=== PATIENT | female | born 2000 | race Caucasian/White ===

== ENCOUNTER 2024-09-22 09:38 | Outpatient (AMB) | payer MEDICAID, SELFPAY ==
[2024-09-22 09:53] VITALS: BP 110/71; PULSE 77; RESP 16; TEMP 35.7; O2SAT 99; BMI 25.7
--- NOTE | 2024-09-22 09:53 | OBCLNT_ITS ---
Vital Signs 09/22/24 09:53 Height 1.75 m Height Method Stated Weight 78.982 kg Weight Measurement Method Standing Scale BMI 25.7 BP 110/71 Blood Pressure Source Automatic Cuff Blood Pressure Location Left Upper Arm Position Sitting Respiration 16 Pulse 77 Pulse Source Monitor Temp 96.3 F L Temp Source Oral Pulse Oximetry (%) 99 Oxygen Delivery Method Room Air Allergies/Home Meds Allergies & Medications Allergies No Known Allergies Allergy (Verified 09/22/24 09:54) Medication Reconciliation vitamins with calcium no.72-iron 29 mg-folic acid 1 mg tablet ( Plus) 1 tab PO QDAY 90 days #90 tabs 09/22/24 [Rx] Intake Visit Data Collection New Patient or Established: New Patient (never been to [facility]) Reason for Visit:: New OB intake Seen by Clinical Staff ONLY (RN/MA): No Flooring Professional Required: No Do You Feel Safe at Home: Yes Authorities Contacted: N/A PCP or OBGYN visit in last 3 months: No Hx Now: Yes Are you currently on any form of Control: No Last menstrual period: 07/18/24 Pain Present Currently: No Pain Scale Used: Mcneal-Zeng/Numerical Pain scale:: 0 Smoking Status Smoking Status: Never smoker Questionnaires Covid-19 Vaccine Questionnaire Has patient been vacinated for Covid-19 Have you been vacinated for Covid-19: Yes PHQ-9 PHQ-2 Over the last 2 weeks, how often have you been bothered by any of the following problems? 1. Little interest or pleasure in doing things: not at all 2. Feeling down, depressed, or hopeless: not at all Total score: 0 PHQ-9 3. Trouble falling or staying asleep, or sleeping too much: Not at all 4. Feeling tired or having little energy: Not at all 5. Poor appetite or overeating: Not at all 6. Feeling bad about yourself - or that you are a failure or have let yourself or your family down: Not at all 7. Trouble concentrating on things, such as reading the newspaper or watching television: Not at all 8. Moving or speaking so slowly that other people could have noticed? - Or the opposite - being so fidgety or restless that you have been moving around a lot more than usual: not at all 9. Thoughts that you would be better off or of hurting yourself in some way: Not at all Total score: 0 If you checked off any problems, how difficult have these problems made it for you to do your work, take care of things at home, or get along with other people?: not difficult at all Source: Developed by Drs. Aydin Kat, Shadia Navraez, Surendra Acosta and colleagues, with an educational brandee from [employer]. Depression screen completed yes Social History Living Situation History Marital Status: Single Lives With: Family Housing: House Tobacco History Smoking Status: Never smoker Domestic Abuse History Do You Feel Safe at Home: Yes Past Medical History Past Medical History Have you ever been diagnosed with any of the following: History of Present Illness HPI Narrative Chief Complaint First visit for History of Present Illness Geraldine Alarcon presents for her first visit. She reports her last menstrual period was on July 18, which puts her at 9 weeks and 3 days gestation with an estimated due date of April 24. The patient states that overall, her is going good. She reports experiencing a little bit of nausea and vomiting, but notes it occurs only once in a while and not daily or multiple times per day. She denies any cramping, spotting, or bleeding. Geraldine has one previous child, a 7-year-old daughter, born via vaginal delivery without complications. She denies any history of gestational diabetes or high blood pressure in her previous . The patient is currently taking vitamins as recommended. Surgical History - Vaginal (1 child) Medications and Supplements - vitamins Social History - Children: Has a 7-year-old daughter Review of Systems General: Negative for fever, chills, fatigue, muscle aches, appetite or weight change. Gastrointestinal: Positive for mild nausea, negative for vomiting. Genitourinary: Negative for vaginal bleeding. OB Initial Visit Menstrual History Menstrual reliability: definite Flow: normal Menstrual regularity: regular Monthly: Yes Age at menarche: 10 On control pills at conception: No Date of positive home test: 08/26/24 OB History : 2 Para: 1 Hx # Pregnancies: 0 Hx Total # of Abortions (Spontaneous & Elective): 0 # of Living Children: 1 Delivery History 1st : Child's name: LOREN date: 06/18/17 sex: female Delivery type: vaginal History of depression before or after : No Infection History & Risk Evaluation History of STDs: none HIV risk evaluation: low risk Hepatitis B risk evaluation: low risk Patient or partner has history of Genital Herpes: No Varicella/chicken pox status: immunized Genetic Screening & History Genetic Screening/Teratology Counseling - Includes patient, baby's father, or anyone in either family with: 1. Patient's age 35 years or older as of estimated date of delivery: No 2. Thalassemia (Chilean, Hungarian, Mediterranean, or Background); MCV less than 80: No 3. Neural Tube Defect (Meningomyelocele, Spina Bifida, or Anencephaly): No 4. Congenital Heart Defect: No 5. Down Syndrome: No 6. Maximilian-Sachs (Ashkenazi Sikhism, Cajun, Faroese Burundian): No 7. Van Disease (Ashkenazi Sikhism): No 8. Familial Dysautonomia (Ashkenazi Sikhism): No 9. Sickle Cell Disease or Trait (): No 10. Hemophilia or other blood disorders: No 11. Muscular Dystrophy: No 12. Cystic Fibrosis: No 13. Julio C's Chorea: No 14. Mental Retardation/Autism: No 15. Other inherited genetic or chromosomal disorder: No 16. Maternal Metabolic Disorder (EG,TYPE 1 Diabetes, PKU): No 17. Patient or baby's father had a child with defects not listed above: No 18. Recurrent loss or a stillbirth: No 19. Medications (including supplements, vitamins, herbs or otc drugs)/illicit/recreational drugs/alcohol since last menstrual period: No 20. Any other: No Infection History 1. Live with someone with TB or exposed to TB: No 2. Rash or viral illness since last menstrual period: No 3. Hepatitis B,C: No Other (see comments) Source: [employer] OB Flowsheet OB Flowsheet Initial Weight: Not Recorded Date -?-?-?-?-?-?-?-?-?-?-?--?- EGA Weight Edema CTX Effacement BP Fundal ht Pres Dilation Effacement Station Visit Note Alb Glu FHR Mov 09/22/24 -?-?-?-?-?-?-?-?-?-?-?-?- 9w 3d 78.982 kg 110/71 Bedsi de sono CRL 9w3d FHR 167 Review of Systems Review of Systems Systems Reviewed: All systems reviewed, normal except as documented Exam General Limitations: no limitations General Appearance: alert, in no apparent distress, comfortable, cooperative, healthy appearing, well developed and well groomed Head Head exam: atraumatic, normocephalic and normal inspection Chest Chest inspection: Present normal inspection and symmetric chest wall rise Abdominal Abdominal exam: Present soft and normal bowel sounds Psych Psychiatric exam: Present normal affect and normal mood Assessment & Plan Diagnosis / Problem List (1) : Status: Acute (2) Supervision of high risk , unspecified, first trimester: Status: Acute Plan Patient here to establish initial care Bedside ultrasound is consistent with LMP dates Sent prescription for vitamins Given lab order for initial labs as well as NIPT Return in 4 weeks Additional Plan Follow Up: 2 Weeks Office Procedures OB Clinic LOC & Office Proc's Nursing/Assessment Patient Status: Initial/New Patient OB Clinic Nursing Assessment: BP Monitoring, Medication Reconciliation, Update PMH in EMR and Vital Signs OB Clinic Coordination of Care: Consent,records obtained, informed consent, Education Simp Pt/Fam, Lab and Imaging orders and Staff clarify orders New Patient Charge New Patient Point Assignment: [id number] New Patient 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
== END 2024-09-22 09:59 | disposition home or self-care (01) ==
LOC: HODSOBC 09:38
PROVIDERS: PCP Family Medicine; Referring Provider Family Medicine; Supervising Provider Obstetrics & Gynecology; Visit Provider Obstetrics & Gynecology
DX: O09.91 Supervision of high risk pregnancy, unspecified, first trimester (principal); Z3A.09 9 weeks gestation of pregnancy
CPT/HCPCS: 76801; 99203; G0463

== ENCOUNTER 2024-10-13 10:12 | Outpatient (AMB) | payer MEDICAID, SELFPAY ==
[2024-10-13 10:34] VITALS: BP 121/76; PULSE 88; RESP 18; TEMP 36.2; O2SAT 98; BMI 25.8
--- NOTE | 2024-10-13 10:34 | OBCLNT_ITS ---
Vital Signs 10/13/24 10:34 Height 1.75 m Height Method Stated Weight 79.095 kg Weight Measurement Method Standing Scale BMI 25.8 BP 121/76 Blood Pressure Source Automatic Cuff Blood Pressure Location Right Upper Arm Position Sitting Respiration 18 Pulse 88 Pulse Source Monitor Temp 97.1 F Temp Source Temporal Artery Scan Pulse Oximetry (%) 98 Oxygen Delivery Method Room Air Allergies/Home Meds Allergies & Medications Allergies No Known Allergies Allergy (Verified 10/13/24 10:36) Medication Reconciliation vitamins with calcium no.72-iron 29 mg-folic acid 1 mg tablet ( Plus) 1 tab PO QDAY 90 days #90 tabs 09/22/24 [Rx Confirmed 10/13/24] Intake Visit Data Collection New Patient or Established: Established Patient (seen at [facility] within 3 years) Reason for Visit:: - 2nd visit at 12 weeks and 3 days - Review of lab results Do You Feel Safe at Home: Yes Authorities Contacted: N/A PCP or OBGYN visit in last 3 months: Yes Pain Present Currently: No Smoking Status Smoking Status: Never smoker Questionnaires Covid-19 Vaccine Questionnaire Has patient been vacinated for Covid-19 Have you been vacinated for Covid-19: Yes PHQ-9 PHQ-2 Over the last 2 weeks, how often have you been bothered by any of the following problems? 1. Little interest or pleasure in doing things: not at all 2. Feeling down, depressed, or hopeless: not at all Total score: 0 PHQ-9 8. Moving or speaking so slowly that other people could have noticed? - Or the opposite - being so fidgety or restless that you have been moving around a lot more than usual: not at all Source: Developed by Drs. Aydin Kat, Shadia Narvaez, Surendra Acosta and colleagues, with an educational brandee from [employer]. Depression screen completed yes Social History Living Situation History Marital Status: Life Partner Lives With: Family Housing: House Tobacco History Smoking Status: Never smoker Domestic Abuse History Do You Feel Safe at Home: Yes Past Medical History Past Medical History Have you ever been diagnosed with any of the following: History of Present Illness HPI Narrative - Geraldine presents for her 2nd visit at 12 weeks and 3 days gestation for review of lab results. 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 Ultrasound performed, visualizing placenta and fetus. head, body, and legs identified on ultrasound. Review of Systems Review of Systems Systems Reviewed: All systems reviewed, normal except as documented Visit OB Visit Log OB Flowsheet Initial Weight: Not Recorded Date -?-?-?-?-?-?-?-?-?-?-?-?- EGA Weight Edema CTX Effacement BP Fundal ht Pres Dilation Effacement Station Visit Note Alb Glu FHR Mov 09/22/24 -?-?-?-?-?-?-?-?-?-?-?-?- 9w 3d 78.982 kg 110/71 Bedsi de sono CRL 9w3d FHR 167 10/13/24 -?-?-?-?-?-?--?-?-?-?-?-?- 12w 3d 79.095 kg 121/76 No C TX/LOF/VB. Reports good FM. No PICHARDO/VS, Epig/RUQ pain. Reports resolved nausea, mild persistent cough, no urinary symptoms. 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 Ultrasound: FHR 161 bpm. Placenta and fe lesa anatomy (head, body, legs) visualized. Labs: Asymptomatic bacteriuria (E. coli) . Genetic screen negative for aneuploidies. Female fetus. Assessment & Plan: 12w3d IUP with normal ultrasound and lab s. Mild cough, asymptomatic UTI. Treat UTI: prescribe 5-day antibiotic co urse Retest urine at next visit Provide genetic results in sealed envelo pe Advise wearing mask while working with n ail products Recommend light/moderate exercise; avoid high-intensity activity No targeted weight gain needed at this s tage Follow up in 4 weeks Reviewed labor signs and health guidance TATYANA Calculator Estimated Delivery Date Method Current WG Current Estimate 04/24/25 Ultrasound #1 12w 6d Other Estimates 04/24/25 LMP (Certain) 12w 6d Exam General General Appearance: alert, in no apparent distress and healthy appearing Head Head exam: atraumatic Neck Neck exam: Present normal inspection and trachea midline Chest Chest inspection: Present normal inspection and symmetric chest wall rise External exam: Present normal external exam; Absent tenderness Neuro Neurological exam: Present oriented X3 Psych Psychiatric exam: Present normal affect and normal mood Assessment & Plan Diagnosis / Problem List (1) Supervision of high risk , unspecified, first trimester: Status: Acute (2) : Status: Acute Plan Problem List - Urinary tract infection - Cough Assessment - Intrauterine at 12 weeks and 3 days gestation - Asymptomatic bacteriuria with E. coli - Mild persistent cough - Normal genetic screening results (negative for aneuploidies) - Female fetus Plan - Prescribe 5-day course of antibiotics for E. 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 Advised avoiding heavy lifting and getting adequate rest. Instructed to contact the office immediately if any signs occur. Discussed the importance of a balanced diet rich in folic acid, iron, and calcium, and provided a list of recommended and to-avoid foods. Emphasized avoiding high-sugar foods to reduce gestational diabetes risk. Encouraged hydration and frequent, small meals for energy..
== END 2024-10-13 11:05 | disposition home or self-care (01) ==
LOC: HODSOBC 10:12
PROVIDERS: PCP Obstetrics & Gynecology; Referring Provider Obstetrics & Gynecology; Supervising Provider Obstetrics & Gynecology; Visit Provider Obstetrics & Gynecology
DX: O09.891 Supervision of other high risk pregnancies, first trimester (principal); Z3A.12 12 weeks gestation of pregnancy; O23.41 Unspecified infection of urinary tract in pregnancy, first trimester; N39.0 Urinary tract infection, site not specified; B96.20 Unspecified Escherichia coli [E. coli] as the cause of diseases classified elsewhere; O99.891 Other specified diseases and conditions complicating pregnancy; R05.3 Chronic cough
CPT/HCPCS: 99214; G0463

== ENCOUNTER 2024-11-17 10:31 | Outpatient (AMB) | payer MEDICAID, SELFPAY ==
--- NOTE | 2024-11-17 10:35 | OBCLNT_ITS ---
Vital Signs 11/17/24 10:42 Height 1.75 m Height Method Stated Weight 84.822 kg Weight Measurement Method Standing Scale BMI 27.6 BP 106/68 Blood Pressure Source Automatic Cuff Blood Pressure Location Right Upper Arm Position Sitting Respiration 16 Pulse 81 Pulse Source Monitor Temp 98.2 F Temp Source Oral Pulse Oximetry (%) 98 Oxygen Delivery Method Room Air Allergies/Home Meds Allergies & Medications Allergies No Known Allergies Allergy (Verified 11/17/24 10:43) Medication Reconciliation vitamins with calcium no.72-iron 29 mg-folic acid 1 mg tablet ( Plus) 1 tab PO QDAY 90 days #90 tabs 09/22/24 [Rx Confirmed 11/17/24] Intake Visit Data Collection New Patient or Established: Established Patient (seen at [facility] within 3 years) Reason for Visit:: CARE Seen by Clinical Staff ONLY (RN/MA): No Chef Broiler Or 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 1. Little interest or pleasure in doing things: not at all 2. Feeling down, depressed, or hopeless: not at all Total score: 0 PHQ-9 3. Trouble falling or staying asleep, or sleeping too much: Not at all 4. Feeling tired or having little energy: Not at all 5. Poor appetite or overeating: Not at all 6. Feeling bad about yourself - or that you are a failure or have let yourself or your family down: Not at all 7. Trouble concentrating on things, such as reading the newspaper or watching television: Not at all 8. Moving or speaking so slowly that other people could have noticed? - Or the opposite - being so fidgety or restless that you have been moving around a lot more than usual: not at all 9. Thoughts that you would be better off or of hurting yourself in some way: Not at all Total score: 0 Source: Developed by Drs. Aydin Kat, Shadia Narvaez, Surendra Acosta and colleagues, with an educational brandee from [employer]. Depression screen completed yes Social History Living Situation History Lives With: Family Housing: House Tobacco History Smoking Status: Never smoker Domestic Abuse History Do You Feel Safe at Home: Yes Care OB Visit Log OB Flowsheet Initial Weight: Not Recorded Date -?-?-?-?-?-?-?-?-?-?-?-?- EGA Weight BP Alb Glu CTX Pres Fundal ht FHR Mov Dilation Station Effacement Hx Notes Visit Note 09/22/24 -?-?-?-?-?-?-?-?-?-?-?-?- 9w 3d 78.982 kg 110/71 Bedside sono CRL 9w3d FHR 167 10/13/24 -?-?-?-?-?-?-?-?-?-?-?-?- 12w 3d 79.095 kg 121/76 No CTX/LOF/VB. Reports good FM. No PICHARDO/VS, Epig/RUQ pain. Reports resolved nausea, mild persistent cough, no urinary symptoms. 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 Ultrasound: FHR 161 bpm. Placenta and fe lesa anatomy (head, body, legs) visualized. Labs: Asymptomatic bacteriuria (E. coli) . Genetic screen negative for aneuploidies. Female fetus. Assessment & Plan: 12w3d IUP with normal ultrasound and lab s. Mild cough, asymptomatic UTI. 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 low pressure at time. no early preg complaints today AFP today, sched MFM for anatomy scan, sab precaution, increase fluid, review ER precaution, RTC 4 week TATYANA Calculator Estimated Delivery Date Method Current WG Current Estimate 04/24/25 Ultrasound #1 17w 3d Other Estimates 04/24/25 LMP (Certain) 17w 3d Notes Visit Date: 11/17/24 Last Updated by: Kita Lynch CNM 24 yo . lmp 07/18/24. EDC 04/24/25. hgabs-,HIV-,HC-, GC/CT-, B+,ABS-, nipt and carrier screen-, Office Procedures OB Clinic LOC & Office Proc's Nursing/Assessment Patient Status: Established Patient OB Clinic Nursing Assessment: Medication Reconciliation, Update PMH in EMR and Vital Signs OB Clinic Coordination of Care: Complex Care and Chronic Disease 1-5, Consent,records obtained, informed consent, Education Simp Pt/Fam, Lab and Imaging orders, Results/Orders obtained and Staff clarify orders Special Needs: Heart tones Established Patient Charge Established Patient Point Assignment: 135 Established Patient Point Charge: EP Level 4 (120-155) Assessment & Plan Diagnosis / Problem List (1) Encounter for supervision of normal in multigravida in second trimester: Status: Acute Plan sched MFM sono, AFP, sab precaution, increase fluid and restpatient treated for uti LV at ER. RTC 4 week obc Additional Plan Follow Up: 4 Weeks (obc)
[2024-11-17 10:42] VITALS: BP 106/68; PULSE 81; RESP 16; TEMP 36.8; O2SAT 98; BMI 27.6
== END 2024-11-17 11:18 | disposition home or self-care (01) ==
LOC: HODSOBC 10:31
PROVIDERS: PCP Advanced Practice Midwife; Referring Provider Advanced Practice Midwife; Supervising Provider Advanced Practice Midwife; Visit Provider Advanced Practice Midwife
DX: Z34.82 Encounter for supervision of other normal pregnancy, second trimester (principal); Z3A.17 17 weeks gestation of pregnancy
CPT/HCPCS: 99214; G0463

== ENCOUNTER 2024-12-22 10:32 | Outpatient (AMB) | payer MEDICAID, SELFPAY ==
[2024-12-22 10:48] VITALS: BP 109/67; PULSE 80; RESP 17; TEMP 36.6; O2SAT 98; BMI 29.0
--- NOTE | 2024-12-22 10:48 | OBCLNT_ITS ---
Vital Signs 12/22/24 10:48 Height 1.75 m Height Method Stated Weight 89.018 kg Weight Measurement Method Standing Scale BMI 29.0 BP 109/67 Blood Pressure Source Automatic Cuff Blood Pressure Location Right Upper Arm Position Sitting Respiration 17 Pulse 80 Pulse Source Monitor Temp 97.8 F Temp Source Temporal Artery Scan Pulse Oximetry (%) 98 Oxygen Delivery Method Room Air Allergies/Home Meds Allergies & Medications Allergies No Known Allergies Allergy (Verified 12/22/24 10:49) Medication Reconciliation vitamins with calcium no.72-iron 29 mg-folic acid 1 mg tablet ( Plus) 1 tab PO QDAY 90 days #90 tabs 09/22/24 [Rx Confirmed 12/22/24] Intake Visit Data Collection New Patient or Established: Established Patient (seen at [facility] within 3 years) Reason for Visit:: OBC Seen by Clinical Staff ONLY (RN/MA): No 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 1. Little interest or pleasure in doing things: not at all 2. Feeling down, depressed, or hopeless: not at all Total score: 0 PHQ-9 3. Trouble falling or staying asleep, or sleeping too much: Not at all 4. Feeling tired or having little energy: Not at all 5. Poor appetite or overeating: Not at all 6. Feeling bad about yourself - or that you are a failure or have let yourself or your family down: Not at all 7. Trouble concentrating on things, such as reading the newspaper or watching television: Not at all 8. Moving or speaking so slowly that other people could have noticed? - Or the opposite - being so fidgety or restless that you have been moving around a lot more than usual: not at all 9. Thoughts that you would be better off or of hurting yourself in some way: Not at all Total score: 0 If you checked off any problems, how difficult have these problems made it for you to do your work, take care of things at home, or get along with other people?: not difficult at all Source: Developed by Drs. Aydin Kat, Shadia Narvaez, Surendra Acosta and colleagues, with an educational brandee from [employer]. Depression screen completed yes Social History Living Situation History Marital Status: Lives With: Family Housing: House Tobacco History Smoking Status: Never smoker Second Hand Smoke Exposure: No Alcohol History Alcohol Intake: Never Domestic Abuse History Do You Feel Safe at Home: Yes Care OB Visit Log OB Flowsheet Initial Weight: Not Recorded Date -?-?-?-?-?-?-?-?-?-?-?-?- EGA Weight BP Alb Glu CTX Pres Fundal ht FHR Mov Dilation Station Effacement Hx Notes Visit Note 09/22/24 -?-?-?-?-?-?-?-?-?-?-?-?- 9w 3d 78.982 kg 110/71 Bedside sono CRL 9w3d FHR 167 10/13/24 -?-?-?-?-?-?-?-?-?-?-?-?- 12w 3d 79.095 kg 121/76 No CTX/LOF/VB. Reports good FM. No PICHARDO/VS, Epig/RUQ pain. Reports resolved nausea, mild persistent cough, no urinary symptoms. 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 Ultrasound: FHR 161 bpm. Placenta and fe lesa anatomy (head, body, legs) visualized. Labs: Asymptomatic bacteriuria (E. coli) . Genetic screen negative for aneuploidies. Female fetus. Assessment & Plan: 12w3d IUP with normal ultrasound and lab s. Mild cough, asymptomatic UTI. 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 low pressure at time. no early preg complaints today AFP today, sched MFM for anatomy scan, sab precaution, increase fluid, review ER precaution, RTC 4 week 12/22/24 -?-?-?-?-?-?-?-?--?-?-?-?- 22w 3d 89.018 kg 109/67 absent unknown 17 155 active light fm, no sab complaints, takes PNV, MFM r/s for 01/05 discuss AFP-, discuss PTL precaution, hydrate, continue PNV. RTC 4 week TATYANA Calculator Estimated Delivery Date Method Current WG Current Estimate 04/24/25 Ultrasound #1 22w 3d Other Estimates 04/24/25 LMP (Certain) 22w 3d Notes Visit Date: 12/22/24 Last Updated by: Kita Lynch CNM 12/22: AFP-, NIPT- Visit Date: 11/17/24 Last Updated by: Kita Lynch CNM 24 yo . lmp 07/18/24. EDC 04/24/25. hgabs-,HIV-,HC-, GC/CT-, B+,ABS-, nipt and carrier screen-, Office Procedures OB Clinic LOC & Office Proc's Nursing/Assessment Patient Status: Established Patient OB Clinic Nursing Assessment: Medication Reconciliation, Update PMH in EMR and Vital Signs OB Clinic Coordination of Care: Complex Care and Chronic Disease 1-5, Consent,records obtained, informed consent, Education Simp Pt/Fam and Staff clarify orders Special Needs: Heart tones Established Patient Charge Established Patient Point Assignment: 115 Established Patient Point Charge: EP Level 3 (80-115) Assessment & Plan Diagnosis / Problem List (1) Encounter for supervision of normal in multigravida in second trimester: Status: Acute Plan discuss PTL precaution, hydrate. continue PNV, rtc 4 week obc Additional Plan Follow Up: 4 Weeks (obc)
== END 2024-12-22 11:07 | disposition home or self-care (01) ==
LOC: HODSOBC 10:32
PROVIDERS: PCP Advanced Practice Midwife; Referring Provider Advanced Practice Midwife; Supervising Provider Advanced Practice Midwife; Visit Provider Advanced Practice Midwife
DX: Z34.82 Encounter for supervision of other normal pregnancy, second trimester (principal); Z3A.22 22 weeks gestation of pregnancy
CPT/HCPCS: 99213; G0463

== ENCOUNTER 2025-01-20 15:26 | Outpatient (AMB) | payer MEDICAID, SELFPAY ==
[2025-01-20 16:05] VITALS: BP 110/70; PULSE 83; RESP 17; TEMP 36.7; O2SAT 98; BMI 30.2
--- NOTE | 2025-01-20 16:05 | OBCLNT_ITS ---
Vital Signs 01/20/25 16:05 Height 1.75 m Height Method Stated Weight 92.646 kg Weight Measurement Method Standing Scale BMI 30.2 BP 110/70 Blood Pressure Source Automatic Cuff Blood Pressure Location Right Upper Arm Position Sitting Respiration 17 Pulse 83 Pulse Source Monitor Temp 98.1 F Temp Source Temporal Artery Scan Pulse Oximetry (%) 98 Oxygen Delivery Method Room Air Allergies/Home Meds Allergies & Medications Allergies No Known Allergies Allergy (Verified 01/20/25 16:05) Medication Reconciliation vitamins with calcium no.72-iron 29 mg-folic acid 1 mg tablet ( Plus) 1 tab PO QDAY 90 days #90 tabs 09/22/24 [Rx Confirmed 01/20/25] Intake Visit Data Collection New Patient or Established: Established Patient (seen at [facility] within 3 years) Reason for Visit:: OBC 24W Seen by Clinical Staff ONLY (RN/MA): No Air Cargo 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 1. Little interest or pleasure in doing things: not at all 2. Feeling down, depressed, or hopeless: not at all Total score: 0 PHQ-9 3. Trouble falling or staying asleep, or sleeping too much: Not at all 4. Feeling tired or having little energy: Not at all 5. Poor appetite or overeating: Not at all 6. Feeling bad about yourself - or that you are a failure or have let yourself or your family down: Not at all 7. Trouble concentrating on things, such as reading the newspaper or watching television: Not at all 8. Moving or speaking so slowly that other people could have noticed? - Or the opposite - being so fidgety or restless that you have been moving around a lot more than usual: not at all 9. Thoughts that you would be better off or of hurting yourself in some way: Not at all Total score: 0 If you checked off any problems, how difficult have these problems made it for you to do your work, take care of things at home, or get along with other people?: not difficult at all Source: Developed by Drs. Aydin Kat, Shadia Narvaez, Surendra Acosta and colleagues, with an educational brandee from [employer]. Depression screen completed yes Social History Living Situation History Marital Status: Life Partner Lives With: Family Housing: House Tobacco History Smoking Status: Never smoker Second Hand Smoke Exposure: No Alcohol History Alcohol Intake: Never Domestic Abuse History Do You Feel Safe at Home: Yes Care OB Visit Log OB Flowsheet Initial Weight: Not Recorded Date -?-?-?-?-?-?-?-?-?-?-?-?- EGA Weight BP Alb Glu CTX Pres Fundal ht FHR Mov Dilation Station Effacement Hx Notes Visit Note 09/22/24 -?-?-?-?-?-?-?-?-?-?-?-?- 9w 3d 78.982 kg 110/71 Bedside sono CRL 9w3d FHR 167 10/13/24 -?-?-?-?-?-?-?-?-?-?-?-?- 12w 3d 79.095 kg 121/76 No CTX/LOF/VB. Reports good FM. No PICHARDO/VS, Epig /RUQ pain. Reports resolved nausea, mild persistent cough, no urinary symptoms. 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 Ultrasound: FHR 161 bpm. Placenta and fe lesa anatomy (head, body, legs) visualized. Labs: Asymptomatic bacteriuria (E. coli) . Genetic screen negative for aneuploidies. Female fetus. Assessment & Plan: 12w3d IUP with normal ultrasound and lab s. Mild cough, asymptomatic UTI. 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 low pressure at time. no early preg complaints today AFP today, sched MFM for anatomy scan, sab precaution, increase fluid, review ER precaution, RTC 4 week 12/22/24 -?-?-?-?-?-?-?-?-?-?-?-?- 22w 3d 89.018 kg 109/67 absent unknown 17 155 active light fm, no sab complaints, takes PNV, MFM r/s for 01/05 discuss AFP-, discuss PTL precaution, hydrate, continue PNV. RTC 4 week 01/20/25 -?-?-?-?-?-?-?-?-?-?-?-?- 26w 4d 92.646 kg 110/70 absent unknown 25 154 active Reports good movement. Denies SAB precautions. Denies leaking, denies bleeding, denies contractions. Discussed third trimester labs. Reviewed labor precautions. Increase fluid. Discussed weight gain and activity. Patient will return in 4 weeks OB check TATYANA Calculator Estimated Delivery Date Method Current WG Current Estimate 04/24/25 LMP (Certain) 26w 4d Other Estimates 04/24/25 Ultrasound #1 26w 4d 04/24/25 Ultrasound #2 26w 4d Notes Visit Date: 01/20/25 Last Updated by: Kita Lynch CNM B+,abs-,rpr;;nr, rub imm, hbsag-,hiv-,HC-, GC-/CT-, UA-, 1 hr gtt-. 24 yo . LMP 07/18/24. EDC 04/24/25 Visit Date: 12/22/24 Last Updated by: Kita Lynch CNM 12/22: AFP-, NIPT- Visit Date: 11/17/24 Last Updated by: Kita Lynch CNM 24 yo . lmp 07/18/24. EDC 04/24/25. hgabs-,HIV-,HC-, GC/CT-, B+,ABS-, nipt and carrier screen-, 12/36/236 Office Procedures OB Clinic LOC & Office Proc's Nursing/Assessment Patient Status: Established Patient OB Clinic Nursing Assessment: Medication Reconciliation, Update PMH in EMR and Vital Signs OB Clinic Coordination of Care: Complex Care and Chronic Disease 1-5, Consent,records obtained, informed consent, Education Simp Pt/Fam and Staff clarify orders Special Needs: Heart tones Established Patient Charge Established Patient Point Assignment: 115 Established Patient Point Charge: EP Level 3 (80-115) Assessment & Plan Diagnosis / Problem List (1) Encounter for supervision of normal in multigravida in second trimester: Status: Acute Plan Discussed third trimester labs. Reviewed sono with patient. Discussed labor precautions. Increase fluids. Continue prenatals and return in 4 weeks OB check Additional Plan Follow Up: 4 Weeks (obc)
== END 2025-01-20 16:20 | disposition home or self-care (01) ==
LOC: HODSOBC 15:26
PROVIDERS: PCP Advanced Practice Midwife; Referring Provider Advanced Practice Midwife; Supervising Provider Advanced Practice Midwife; Visit Provider Advanced Practice Midwife
DX: Z34.82 Encounter for supervision of other normal pregnancy, second trimester (principal); Z3A.26 26 weeks gestation of pregnancy
CPT/HCPCS: 99213; G0463

== ENCOUNTER 2025-02-23 15:20 | Outpatient (AMB) | payer MEDICAID, SELFPAY ==
[2025-02-23 15:32] VITALS: BP 117/71; PULSE 90; RESP 16; TEMP 36.2; O2SAT 98; BMI 31.4
--- NOTE | 2025-02-23 15:32 | OBCLNT_ITS ---
Vital Signs 02/23/25 15:32 Height 1.75 m Height Method Stated Weight 96.275 kg Weight Measurement Method Standing Scale BMI 31.4 BP 117/71 Blood Pressure Source Automatic Cuff Blood Pressure Location Left Upper Arm Position Sitting Respiration 16 Pulse 90 Pulse Source Monitor Temp 97.2 F Temp Source Oral Pulse Oximetry (%) 98 Oxygen Delivery Method Room Air Allergies/Home Meds Allergies & Medications Allergies No Known Allergies Allergy (Verified 02/23/25 15:33) Medication Reconciliation vitamins with calcium no.72-iron 29 mg-folic acid 1 mg tablet ( Plus) 1 tab PO QDAY 90 days #90 tabs 09/22/24 [Rx Confirmed 02/23/25] Intake Visit Data Collection New Patient or Established: Established Patient (seen at [facility] within 3 years) Reason for Visit:: OBC Seen by Clinical Staff ONLY (RN/MA): No Carousel Attendant Required: No Do You Feel Safe at Home: Yes Authorities Contacted: N/A PCP or OBGYN visit in last 3 months: Yes Date of Last PCP or OBGYN visit: 01/20/25 Hx Now: Yes Are you currently on any form of Control: No Pain Present Currently: No Pain Scale Used: Mcneal-Zeng/Numerical Pain scale:: 0 Smoking Status Smoking Status: Never smoker Questionnaires Covid-19 Vaccine Questionnaire Has patient been vacinated for Covid-19 Have you been vacinated for Covid-19: Yes PHQ-9 PHQ-2 Over the last 2 weeks, how often have you been bothered by any of the following problems? 1. Little interest or pleasure in doing things: not at all 2. Feeling down, depressed, or hopeless: not at all Total score: 0 PHQ-9 3. Trouble falling or staying asleep, or sleeping too much: Not at all 4. Feeling tired or having little energy: Not at all 5. Poor appetite or overeating: Not at all 6. Feeling bad about yourself - or that you are a failure or have let yourself or your family down: Not at all 7. Trouble concentrating on things, such as reading the newspaper or watching television: Not at all 8. Moving or speaking so slowly that other people could have noticed? - Or the opposite - being so fidgety or restless that you have been moving around a lot more than usual: not at all 9. Thoughts that you would be better off or of hurting yourself in some way: Not at all Total score: 0 If you checked off any problems, how difficult have these problems made it for you to do your work, take care of things at home, or get along with other people?: not difficult at all Source: Developed by Drs. Aydin Kat, Shadia Narvaez, Surendra Acosta and colleagues, with an educational brandee from [employer]. Depression screen completed yes Social History Living Situation History Lives With: Family Housing: House Tobacco History Smoking Status: Never smoker Second Hand Smoke Exposure: No Alcohol History Alcohol Intake: Never Domestic Abuse History Do You Feel Safe at Home: Yes Care OB Visit Log OB Flowsheet Initial Weight: Not Recorded Date -?-?-?-?-?-?-?-?-?-?-?-?- EGA Weight BP Alb Glu CTX Pres Fundal ht FHR Mov Dilation Station Effacement Hx Notes Visit Note 09/22/24 -?-?-?-?-?-?-?-?-?-?-?-?- 9w 3d 78.982 kg 110/71 Bedside sono CRL 9w3d FHR 167 10/13/24 -?-?-?-?-?-?-?-?-?-?-?-?- 12w 3d 79.095 kg 121/76 No CTX/LOF/VB. Reports good FM. No PICHARDO/VS, Epig/RUQ pain. Reports resolved nausea, mild persistent cough, no urinary symptoms. 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 Ultrasound: FHR 161 bpm. Placenta and fe lesa anatomy (head, body, legs) visualized. Labs: Asymptomatic bacteriuria (E. coli) . Genetic screen negative for aneuploidies. Female fetus. Assessment & Plan: 12w3d IUP with normal ultrasound and lab s. Mild cough, asymptomatic UTI. Treat UTI: prescribe 5-day antibiotic co urse Retest urine at next visit Provide genetic results in sealed envelo pe Advise wearing mask while working with n ail products Recommend light/moderate exercise; avoid high-intensity activity No targeted weight gain needed at this s tage Follow up in 4 weeks Reviewed labor signs and health guidance 11/17/24 -?-?-?-?-?-?-?-?-?-?--?-?- 17w 3d 84.822 kg 106/68 absent unknown 17 156 active light + FM, denies LOF,VB or UC. low pressure at time. no early preg complaints today AFP today, sched MFM for anatomy scan, sab precaution, increase fluid, review ER precaution, RTC 4 week 12/22/24 -?-?-?-?-?-?-?-?-?-?-?-?- 22w 3d 89.018 kg 109/67 absent unknown 17 155 active light fm, no sab complaints, takes PNV, MFM r/s for 01/05 discuss AFP-, discuss PTL precaution, hydrate, continue PNV. RTC 4 week 01/20/25 -?-?-?-?-?-?-?-?-?-?-?-?- 26w 4d 92.646 kg 110/70 absent unknown 25 154 active Reports good movement. Denies SAB precautions. Denies leaking, denies bleeding, denies contractions. Discussed third trimester labs. Reviewed labor precautions. Increase fluid. Discussed weight gain and activity. Patient will return in 4 weeks OB check 02/23/25 -?-?-?-?-?-?-?-?-?-?-?-?- 31w 3d 96.275 kg 117/71 absent unknown 30 145 active Reports good movement. Denies contractions. No leaking. No bleeding. Doing well. Fetus is active TDAP, schedule O B sono for growth, PTL precaution , increase fluid. RTC 2 week TATYANA Calculator Estimated Delivery Date Method Current WG Current Estimate 04/24/25 Manual 31w 3d final tatyana Other Estimates 04/24/25 LMP (Certain) 31w 3d 04/24/25 Ultrasound #1 31w 3d 04/24/25 Ultrasound #2 31w 3d Notes Visit Date: 01/20/25 Last Updated by: Kita Lynch CNM B+,abs-,rpr;;nr, rub imm, hbsag-,hiv-,HC-, GC-/CT-, UA-, 1 hr gtt-. 24 yo . LMP 07/18/24. EDC 04/24/25 Visit Date: 12/22/24 Last Updated by: Kita Lynch CNM 12/22: AFP-, NIPT- Visit Date: 11/17/24 Last Updated by: Kita Lynch CNM 24 yo . lmp 07/18/24. EDC 04/24/25. hgabs-,HIV-,HC-, GC/CT-, B+,ABS-, nipt and carrier screen-, Office Procedures OB Clinic LOC & Office Proc's Nursing/Assessment Patient Status: Established Patient OB Clinic Nursing Assessment: Medication Reconciliation, Update PMH in EMR and Vital Signs OB Clinic Coordination of Care: Education Complex Pt/Fam, Consent,records obtained, informed consent, Lab and Imaging orders, Results/Orders obtained and Staff clarify orders Special Needs: Heart tones Established Patient Charge Established Patient Point Assignment: 115 Established Patient Point Charge: EP Level 3 (80-115) Immunizations diphth,pertus(acell),tetanus 2.5 Lf unit-8 mcg-5 Lf/0.5mL IM syringe Performing Provider: Kita Lynch CNM Performing Location: [facility] Administered by: Tammy Pulliam MA on 02/23/25 16:13 Dose Route Admin Location Dispensed Lot Number Expiration Date Pack age [facility] Department Editor 0.5 mL IM Left Deltoid 0.5 mL [id number] 04/16/27 11679-074-09 [id number] G [employer]XOSMITHK[employer] VIS Given Date VIS Provided VIS Publication Date 02/23/25 Single Vaccine 25 Eligibility Eligibility Date Funding Source Public Non-[facility] Assessment & Plan Diagnosis / Problem List (1) Encounter for supervision of high risk in third trimester, antepartum: Status: Acute (2) Size of fetus inconsistent with dates in third trimester: Status: Acute Plan labor precautions. Tdap today. Continue prenatals. Increase fluids. Sono for growth. Return in 2 weeks OB check Additional Plan Follow Up: 2 Weeks (obc)
== END 2025-02-23 16:03 | disposition home or self-care (01) ==
LOC: HODSOBC 15:20
PROVIDERS: Supervising Provider Advanced Practice Midwife; Visit Provider Advanced Practice Midwife
DX: O09.893 Supervision of other high risk pregnancies, third trimester (principal); O26.843 Uterine size-date discrepancy, third trimester; Z3A.31 31 weeks gestation of pregnancy; Z23 Encounter for immunization
CPT/HCPCS: 90471; 90715; 99213; G0463

== ENCOUNTER 2025-03-09 15:18 | Outpatient (AMB) | payer MEDICAID, SELFPAY ==
[2025-03-09 15:39] VITALS: BP 115/70; PULSE 94; RESP 19; TEMP 36.5; O2SAT 96; BMI 31.6
--- NOTE | 2025-03-09 15:39 | OBCLNT_ITS ---
Vital Signs 03/09/25 15:39 Height 1.75 m Height Method Stated Weight 96.729 kg Weight Measurement Method Standing Scale BMI 31.6 BP 115/70 Blood Pressure Source Automatic Cuff Blood Pressure Location Left Upper Arm Position Sitting Respiration 19 Pulse 94 Pulse Source Monitor Temp 97.7 F Temp Source Oral Pulse Oximetry (%) 96 Oxygen Delivery Method Room Air Allergies/Home Meds Allergies & Medications Allergies No Known Allergies Allergy (Verified 03/09/25 15:40) Medication Reconciliation vitamins with calcium no.72-iron 29 mg-folic acid 1 mg tablet ( Plus) 1 tab PO QDAY 90 days #90 tabs 09/22/24 [Rx Confirmed 03/09/25] Intake Visit Data Collection New Patient or Established: Established Patient (seen at [facility] within 3 years) Reason for Visit:: CARE Seen by Clinical Staff ONLY (RN/MA): No Sap Sd Analyst Required: No Do You Feel Safe at Home: Yes Authorities Contacted: N/A PCP or OBGYN visit in last 3 months: Yes Hx Now: Yes Are you currently on any form of Control: No Pain Present Currently: No Pain Scale Used: Mcneal-Zeng/Numerical Pain scale:: 0 Smoking Status Smoking Status: Never smoker Questionnaires Covid-19 Vaccine Questionnaire Has patient been vacinated for Covid-19 Have you been vacinated for Covid-19: Yes PHQ-9 PHQ-2 Over the last 2 weeks, how often have you been bothered by any of the following problems? 1. Little interest or pleasure in doing things: not at all 2. Feeling down, depressed, or hopeless: not at all Total score: 0 PHQ-9 3. Trouble falling or staying asleep, or sleeping too much: Not at all 4. Feeling tired or having little energy: Not at all 5. Poor appetite or overeating: Not at all 6. Feeling bad about yourself - or that you are a failure or have let yourself or your family down: Not at all 7. Trouble concentrating on things, such as reading the newspaper or watching television: Not at all 8. Moving or speaking so slowly that other people could have noticed? - Or the opposite - being so fidgety or restless that you have been moving around a lot more than usual: not at all 9. Thoughts that you would be better off or of hurting yourself in some way: Not at all Total score: 0 Source: Developed by Drs. Aydin Kat, Shadia Narvaez, Surendra Acosta and colleagues, with an educational brandee from [employer]. Depression screen completed yes Social History Living Situation History Lives With: Family Housing: House Tobacco History Smoking Status: Never smoker Second Hand Smoke Exposure: No Alcohol History Alcohol Intake: Never Domestic Abuse History Do You Feel Safe at Home: Yes Care OB Visit Log OB Flowsheet Initial Weight: Not Recorded Date -?-?-?-?-?-?-?-?-?-?-?-?- EGA Weight BP Alb Glu CTX Pres Fundal ht FHR Mov Dilation Station Effacement Hx Notes Visit Note 09/22/24 -?-?-?-?-?-?-?-?-?-?-?-?- 9w 3d 78.982 kg 110/71 Bedside sono CRL 9w3d FHR 167 10/13/24 -?-?-?-?-?-?-?-?-?-?-?-?- 12w 3d 79.095 kg 121/76 No CTX/LOF/VB. Reports good FM. No PICHARDO/VS, Epig/RUQ pain. Reports resolved nausea, mild persistent cough, no urinary symptoms. 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 Ultrasound: FHR 161 bpm. Placenta and fe lesa anatomy (head, body, legs) visualized. Labs: Asymptomatic bacteriuria (E. coli) . Genetic screen negative for aneuploi dies. Female fetus. Assessment & Plan: 12w3d IUP with normal ultrasound and lab s. Mild cough, asymptomatic UTI. 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 low pressure at time. no early preg complaints today AFP today, sched MFM for anatomy scan, sab precaution, increase fluid, review ER precaution, RTC 4 week 12/22/24 -?-?-?-?-?-?-?-?-?-?-?-?- 22w 3d 89.018 kg 109/67 absent unknown 17 155 active light fm, no sab complaints, takes PNV, MFM r/s for 01/05 discuss AFP-, discuss PTL precaution, hydrate, continue PNV. RTC 4 week 01/20/25 -?-?-?-?-?-?-?-?-?-?-?-?- 26w 4d 92.646 kg 110/70 absent unknown 25 154 active Reports good movement. Denies SAB precautions. Denies leaking, denies bleeding, denies contractions. Discussed third trimester labs. Reviewed labor precautions. Increase fluid. Discussed weight gain and activity. Patient will return in 4 weeks OB check 02/23/25 -?-?-?-?-?-?-?-?-?-?-?-?- 31w 3d 96.275 kg 117/71 absent unknown 30 145 active Reports good movement. Denies contractions. No leaking. No bleeding. Doing well. Fetus is active TDAP, schedule O B sono for growth, PTL precaution , increase fluid. RTC 2 week 03/09/25 -?-?-?-?-?-?-?-?-?-?-?-?- 33w 3d 96.729 kg 115/70 absent unknown 32 145 active complaints of back ache and ligament pain. last day to work will be 03/15/25. Denies leaking, bleeding, cramps Disability star ting at 34 weeks 2 days. Last date of work will be March 15, 2025. Discussed labor precautions. Patient's follow- up growth scan is pending. Return in 2 weeks for GBS. Discussed ER precautions and danger signs symptoms. Kick count twice a day TATYANA Calculator Estimated Delivery Date Method Current WG Current Estimate 04/24/25 Manual 33w 3d final tatyana Other Estimates 04/24/25 LMP (Certain) 33w 3d 04/24/25 Ultrasound #1 33w 3d 04/24/25 Ultrasound #2 33w 3d Notes Visit Date: 01/20/25 Last Updated by: Kita Lynch CNM B+,abs-,rpr;;nr, rub imm, hbsag-,hiv-,HC-, GC-/CT-, UA-, 1 hr gtt-. 24 yo . LMP 07/18/24. EDC 04/24/25 Visit Date: 12/22/24 Last Updated by: Kita Lynch CNM 12/22: AFP-, NIPT- Visit Date: 11/17/24 Last Updated by: Kita Lynch CNM 24 yo . lmp 07/18/24. EDC 04/24/25. hgabs-,HIV-,HC-, GC/CT-, B+,ABS-, nipt and carrier screen-, Office Procedures OB Clinic LOC & Office Proc's Nursing/Assessment Patient Status: Established Patient OB Clinic Nursing Assessment: Medication Reconciliation, Update PMH in EMR and Vital Signs OB Clinic Coordination of Care: Complex Care and Chronic Disease 1-5, Consent,records obtained, informed consent, Education Simp Pt/Fam, Lab and Imaging orders, Results/Orders obtained and Staff clarify orders Special Needs: Heart tones Established Patient Charge Established Patient Point Assignment: 135 Established Patient Point Charge: EP Level 4 (120-155) Assessment & Plan Diagnosis / Problem List (1) Size of fetus inconsistent with dates in third trimester: Status: Acute Plan Note for disability starting March 16, 2025. Her patient's last date of work will be March 15. Discussed labor precautions. Kick count twice a day. Gross down is pending. Kick count twice a day. Return in 2 weeks OB check Additional Plan Follow Up: 2 Weeks (obc)
== END 2025-03-09 16:11 | disposition home or self-care (01) ==
LOC: HODSOBC 15:18
PROVIDERS: Supervising Provider Advanced Practice Midwife; Visit Provider Advanced Practice Midwife
DX: O09.893 Supervision of other high risk pregnancies, third trimester (principal); O26.843 Uterine size-date discrepancy, third trimester; Z3A.33 33 weeks gestation of pregnancy
CPT/HCPCS: 99214; G0463

== ENCOUNTER 2025-03-24 09:02 | Outpatient (AMB) | payer MEDICAID, SELFPAY ==
[2025-03-24 09:19] VITALS: BP 112/73; PULSE 92; RESP 17; TEMP 36.5; O2SAT 97; BMI 31.6
--- NOTE | 2025-03-24 09:19 | OBCLNT_ITS ---
Vital Signs 03/24/25 09:19 Height 1.75 m Height Method Stated Weight 97.069 kg Weight Measurement Method Standing Scale BMI 31.6 BP 112/73 Blood Pressure Source Automatic Cuff Blood Pressure Location Right Upper Arm Position Sitting Respiration 17 Pulse 92 Pulse Source Monitor Temp 97.7 F Temp Source Temporal Artery Scan Pulse Oximetry (%) 97 Oxygen Delivery Method Room Air Allergies/Home Meds Allergies & Medications Allergies No Known Allergies Allergy (Verified 03/24/25 09:21) Medication Reconciliation vitamins with calcium no.72-iron 29 mg-folic acid 1 mg tablet ( Plus) 1 tab PO QDAY 90 days #90 tabs 09/22/24 [Rx Confirmed 03/24/25] Intake Visit Data Collection New Patient or Established: Established Patient (seen at [facility] within 3 years) Reason for Visit:: OBC Seen by Clinical Staff ONLY (RN/MA): No Cupola Patcher Helper Required: No Do You Feel Safe at Home: Yes Authorities Contacted: N/A PCP or OBGYN visit in last 3 months: Yes Date of Last PCP or OBGYN visit: 03/09/25 Hx Now: Yes Are you currently on any form of Control: No Pain Present Currently: No Pain Scale Used: Mcneal-Zeng/Numerical Pain scale:: 0 Smoking Status Smoking Status: Never smoker Questionnaires Covid-19 Vaccine Questionnaire Has patient been vacinated for Covid-19 Have you been vacinated for Covid-19: Yes PHQ-9 PHQ-2 Over the last 2 weeks, how often have you been bothered by any of the following problems? 1. Little interest or pleasure in doing things: not at all 2. Feeling down, depressed, or hopeless: not at all Total score: 0 PHQ-9 3. Trouble falling or staying asleep, or sleeping too much: Not at all 4. Feeling tired or having little energy: Not at all 5. Poor appetite or overeating: Not at all 6. Feeling bad about yourself - or that you are a failure or have let yourself or your family down: Not at all 7. Trouble concentrating on things, such as reading the newspaper or watching television: Not at all 8. Moving or speaking so slowly that other people could have noticed? - Or the opposite - being so fidgety or restless that you have been moving around a lot more than usual: not at all 9. Thoughts that you would be better off or of hurting yourself in some way: Not at all Total score: 0 If you checked off any problems, how difficult have these problems made it for you to do your work, take care of things at home, or get along with other people?: not difficult at all Source: Developed by Drs. Aydin Kat, Shadia Narvaez, Surendra Acosta and colleagues, with an educational brandee from [employer]. Depression screen completed yes Social History Living Situation History Marital Status: Single Lives With: Family Housing: House Tobacco History Smoking Status: Never smoker Second Hand Smoke Exposure: No Alcohol History Alcohol Intake: Never Domestic Abuse History Do You Feel Safe at Home: Yes Care OB Visit Log OB Flowsheet Initial Weight: Not Recorded Date -?-?-?-?-?-?-?-?-?-?-?-?- EGA Weight BP Alb Glu CTX Pres Fundal ht FHR Mov Dilation Station Effacement Hx Notes Visit Note 09/22/24 -?-?-?-?-?-?-?-?-?-?-?-?- 9w 3d 78.982 kg 110/71 Bedside sono CRL 9w3d FHR 167 10/13/24 -?-?-?-?-?-?-?-?-?-?-?-?- 12w 3d 79.095 kg 121/76 No CTX/LOF/VB. Reports good FM. No PICHARDO/VS, Epig/RUQ pain. Reports resolved nausea, mild persistent cough, no urinary symptoms. 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 Ultrasound: FHR 161 bpm. Placenta and fe lesa anatomy (head, body, legs) visualized. Labs: Asymptomatic bacteriuria (E. coli) . Genetic screen negative for aneuploidies. Female fetus. Assessment & Plan: 12w3d IUP with normal ultrasound and lab s. Mild cough, asymptomatic UTI. 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 low pressure at time. no early preg complaints today AFP today, sched MFM for anatomy scan, sab precaution, increase fluid, review ER precaution, RTC 4 week 12/22/24 -?-?-?-?-?-?-?-?--?-?-?-?- 22w 3d 89.018 kg 109/67 absent unknown 17 155 active light fm, no sab complaints, takes PNV, MFM r/s for 01/05 discuss AFP-, discuss PTL precaution, hydrate, continue PNV. RTC 4 week 01/20/25 -?-?-?-?-?-?-?-?-?-?-?-?- 26w 4d 92.646 kg 110/70 absent unknown 25 154 active Reports good movement. Denies SAB precautions. Denies leaking, denies bleeding, denies contractions. Discussed third trimester labs. Reviewed labor precautions. Increase fluid. Discussed weight gain and activity. Patient will return in 4 weeks OB check 02/23/25 -?-?-?-?-?-?-?-?-?-?-?-?- 31w 3d 96.275 kg 117/71 absent unknown 30 145 active Reports good movement. Denies contractions. No leaking. No bleeding. Doing well. Fetus is active TDAP, schedule O B sono for growth, PTL precaution , increase fluid. RTC 2 week 03/09/25 -?-?-?-?-?-?-?-?-?-?-?-?- 33w 3d 96.729 kg 115/70 absent unknown 32 145 active complaints of back ache and ligament pain. last day to work will be 03/15/25. Denies leaking, bleeding, cramps Disability star ting at 34 weeks 2 days. Last date of work will be March 15, 2025. Discussed labor precautions. Patient's follow- up growth scan is pending. Return in 2 weeks for GBS. Discussed ER precautions and danger signs symptoms. Kick count twice a day 03/24/25 -?-?-?-?-?-?-?-?-?-?-?-?- 35w 4d 97.069 kg 112/73 absent cephalic 34 142 active Complains of labial veins that she can feel when she showers. Denies leaking, bleeding, contractions. Reports good movement GBS today. Discussed comfort measures for labial vessels and danger signs symptoms. Discussed ER precautions as well kick count twice a day. Discussed labor precautions return in a week OB check TATYANA Calculator Estimated Delivery Date Method Current WG Current Estimate 04/24/25 Manual 35w 4d final tatyana Other Estimates 04/24/25 LMP (Certain) 35w 4d 04/24/25 Ultrasound #1 35w 4d 04/24/25 Ultrasound #2 35w 4d Notes Visit Date: 01/20/25 Last Updated by: Kita Lynch CNM B+,abs-,rpr;;nr, rub imm, hbsag-,hiv-,HC-, GC-/CT-, UA-, 1 hr gtt-. 24 yo . LMP 07/18/24. EDC 04/24/25 Visit Date: 12/22/24 Last Updated by: Kita Lynch CNM 12/22: AFP-, NIPT- Visit Date: 11/17/24 Last Updated by: Kita Lynch CNM 24 yo . lmp 07/18/24. EDC 04/24/25. hgabs-,HIV-,HC-, GC/CT-, B+,ABS-, nipt and carrier screen-, Office Procedures OBC Clinic LOC & Office Proc's Nursing/Assessment Patient Status: Established Patient OB Clinic Nursing Assessment: Medication Reconciliation, Update PMH in EMR and Vital Signs OB Clinic Coordination of Care: Complex Care and Chronic Disease 1-5, Education Complex Pt/Fam, Consent,records obtained, informed consent, Lab and Imaging orders and Staff clarify orders Special Needs: Heart tones Miscellaneous Interventions: Culture Specimen Collection Established Patient Charge Established Patient Point Assignment: 150 Established Patient Point Charge: EP Level 4 (120-155) Assessment & Plan Diagnosis / Problem List (1) Size of fetus inconsistent with dates in third trimester: Status: Acute Plan GBS today. Discussed labor precautions. Kick count twice a day. Discussed comfort measures for varicose veins. Discussed danger signs and symptoms and ER precautions. Return in a week OB check. Continue vitamins and increase fluids Additional Plan Follow Up: 1 Week (obc)
== END 2025-03-24 09:40 | disposition home or self-care (01) ==
LOC: HODSOBC 09:02
PROVIDERS: Supervising Provider Advanced Practice Midwife; Visit Provider Advanced Practice Midwife
DX: O09.893 Supervision of other high risk pregnancies, third trimester (principal); O26.843 Uterine size-date discrepancy, third trimester; Z3A.35 35 weeks gestation of pregnancy; Z36.85 Encounter for antenatal screening for Streptococcus B
CPT/HCPCS: 99214; G0463

== ENCOUNTER 2025-03-31 09:30 | Outpatient (AMB) | payer MEDICAID, SELFPAY ==
[2025-03-31 09:40] VITALS: BP 113/75; PULSE 89; RESP 16; TEMP 36.2; O2SAT 98; BMI 31.4
--- NOTE | 2025-03-31 09:40 | AMB.OBVISIT ---
Vital Signs 03/31/25 09:40 Height 1.75 m Height Method Stated Weight 96.332 kg Weight Measurement Method Standing Scale BMI 31.4 BP 113/75 Blood Pressure Source Automatic Cuff Blood Pressure Location Left Upper Arm Position Sitting Respiration 16 Pulse 89 Pulse Source Monitor Temp 97.2 F Temp Source Oral Pulse Oximetry (%) 98 Oxygen Delivery Method Room Air Allergies/Home Meds Allergies & Medications Allergies No Known Allergies Allergy (Verified 03/31/25 09:41) Medication Reconciliation vitamins with calcium no.72-iron 29 mg-folic acid 1 mg tablet ( Plus) 1 tab PO QDAY 90 days #90 tabs 09/22/24 [Rx Confirmed 03/31/25] Intake Visit Data Collection New Patient or Established: Established Patient (seen at [facility] within 3 years) Reason for Visit:: OBC Seen by Clinical Staff ONLY (RN/MA): No Brass Cleaner Required: No Do You Feel Safe at Home: Yes Authorities Contacted: N/A PCP or OBGYN visit in last 3 months: Yes Date of Last PCP or OBGYN visit: 03/24/25 Hx Now: Yes Are you currently on any form of Control: No Pain Present Currently: No Pain Scale Used: Mcneal-Zeng/Numerical Pain scale:: 0 Smoking Status Smoking Status: Never smoker Questionnaires Covid-19 Vaccine Questionnaire Has patient been vacinated for Covid-19 Have you been vacinated for Covid-19: Yes PHQ-9 PHQ-2 Over the last 2 weeks, how often have you been bothered by any of the following problems? 1. Little interest or pleasure in doing things: not at all 2. Feeling down, depressed, or hopeless: not at all Total score: 0 PHQ-9 3. Trouble falling or staying asleep, or sleeping too much: Not at all 4. Feeling tired or having little energy: Not at all 5. Poor appetite or overeating: Not at all 6. Feeling bad about yourself - or that you are a failure or have let yourself or your family down: Not at all 7. Trouble concentrating on things, such as reading the newspaper or watching television: Not at all 8. Moving or speaking so slowly that other people could have noticed? - Or the opposite - being so fidgety or restless that you have been moving around a lot more than usual: not at all 9. Thoughts that you would be better off or of hurting yourself in some way: Not at all Total score: 0 If you checked off any problems, how difficult have these problems made it for you to do your work, take care of things at home, or get along with other people?: not difficult at all Source: Developed by Drs. Aydin Kat, Shadia Narvaez, Surendra Acosta and colleagues, with an educational brandee from [employer]. Depression screen completed yes Social History Living Situation History Marital Status: Single Lives With: Family Housing: House Tobacco History Smoking Status: Never smoker Second Hand Smoke Exposure: No Alcohol History Alcohol Intake: Never Domestic Abuse History Do You Feel Safe at Home: Yes Care OB Visit Log OB Flowsheet Initial Weight: Not Recorded Date <del>?</del> EGA Weight BP Alb Glu CTX Pres Fundal ht FHR Mov Dilation Station Effacement Hx Notes Visit Note 09/22/24 <del>?</del> 9w 3d 78.982 kg 110/71 Bedside sono CRL 9w3d FHR 167 10/13/24 <del>?</del> 12w 3d 79.095 kg 121/76 No CTX/LOF/VB. Reports good FM. No PICHARDO/VS, Epig/RUQ pain. Reports resolved nausea, mild persistent cough, no urinary symptoms. 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 Ultrasound: FHR 161 bpm. Placenta and anatomy (head, body, legs) visualized. Labs: Asymptomatic bacteriuria (E. coli). Genetic screen negative for aneuploidies. Female fetus. Assessment & Plan: 12w3d IUP with normal ultrasound and labs. Mild cough, asymptomatic UTI. 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 low pressure at time. no early preg complaints today AFP today, sched MFM for anatomy scan, sab precaution, increase fluid, review ER precaution, RTC 4 week 12/22/24 <del>?</del> 22w 3d 89.018 kg 109/67 absent unknown 17 155 active light fm, no sab complaints, takes PNV, MFM r/s for 01/05 discuss AFP-, discuss PTL precaution, hydrate, continue PNV. RTC 4 week 01/20/25 <del>?</del> 26w 4d 92.646 kg 110/70 absent unknown 25 154 active Reports good movement. Denies SAB precautions. Denies leaking, denies bleeding, denies contractions. Discussed third trimester labs. Reviewed labor precautions. Increase fluid. Discussed weight gain and activity. Patient will return in 4 weeks OB check 02/23/25 <del>?</del> 31w 3d 96.275 kg 117/71 absent unknown 30 145 active Reports good movement. Denies contractions. No leaking. No bleeding. Doing well. Fetus is active TDAP, schedule OB sono for growth, PTL precaution , increase fluid. RTC 2 week 03/09/25 <del>?</del> 33w 3d 96.729 kg 115/70 absent unknown 32 145 active complaints of back ache and ligament pain. last day to work will be 03/15/25. Denies leaking, bleeding, cramps Disability starting at 34 weeks 2 days. Last date of work will be March 15, 2025. Discussed labor precautions. Patient's follow-up growth scan is pending. Return in 2 weeks for GBS. Discussed ER precautions and danger signs symptoms. Kick count twice a day 03/24/25 <del>?</del> 35w 4d 97.069 kg 112/73 absent cephalic 34 142 active Complains of labial veins that she can feel when she showers. Denies leaking, bleeding, contractions. Reports good movement GBS today. Discussed comfort measures for labial vessels and danger signs symptoms. Discussed ER precautions as well kick count twice a day. Discussed labor precautions return in a week OB check 03/31/25 <del>?</del> 36w 4d 96.332 kg 113/75 occasional cephalic 35 143 active fetus active, denies leaking, bleeding occ uc and pressure discuss GBS-, growth sono at [facility] 04/02, discuss labor precaution, fkc bid. rtc week obc TATYANA Calculator Estimated Delivery Date Method Current WG Current Estimate 04/24/25 Manual 36w 4d final tatyana Other Estimates 04/24/25 LMP (Certain) 36w 4d 04/24/25 Ultrasound #1 36w 4d 04/24/25 Ultrasound #2 36w 4d Notes Visit Date: 03/31/25 Last Updated by: Kita Lynch CNM 03/31: GBS- Visit Date: 01/20/25 Last Updated by: Kita Lynch CNM B+,abs-,rpr;;nr, rub imm, hbsag-,hiv-,HC-, GC-/CT-, UA-, 1 hr gtt-. 24 yo . LMP 07/18/24. EDC 04/24/25 Visit Date: 12/22/24 Last Updated by: Kita Lynch CNM 12/22: AFP-, NIPT- Visit Date: 11/17/24 Last Updated by: Kita Lynch CNM 24 yo . lmp 07/18/24. EDC 04/24/25. hgabs-,HIV-,HC-, GC/CT-, B+,ABS-, nipt and carrier screen-, Office Procedures OBC Clinic LOC & Office Proc's Nursing/Assessment Patient Status: Established Patient OB Clinic Nursing Assessment: Medication Reconciliation, Update PMH in EMR and Vital Signs OB Clinic Coordination of Care: Consent,records obtained, informed consent, Education Simp Pt/Fam, Lab and Imaging orders, Results/Orders obtained and Staff clarify orders Special Needs: Heart tones Established Patient Charge Established Patient Point Assignment: 110 Established Patient Point Charge: EP Level 3 (80-115) Assessment & Plan Diagnosis / Problem List (1) Size of fetus inconsistent with dates in third trimester: Status: Acute Plan sono for efw 04/02. discuss labor precaution, fkc bid continue PNV, rtc 1 week obc Additional Plan Follow Up: 1 Week (obc)
== END 2025-03-31 10:21 | disposition home or self-care (01) ==
LOC: HODSOBC 09:30
PROVIDERS: Supervising Provider Advanced Practice Midwife; Visit Provider Advanced Practice Midwife
DX: O09.893 Supervision of other high risk pregnancies, third trimester (principal); O26.843 Uterine size-date discrepancy, third trimester; Z3A.36 36 weeks gestation of pregnancy
CPT/HCPCS: 99213; G0463

== ENCOUNTER → 2025-04-02 | Outpatient (CLI) | payer MEDICAID, SELFPAY ==
--- NOTE | 2025-04-02 10:00 | XR_ITS ---
Examination: Complete OB ultrasound greater than 14 weeks Date and time of exam: April 02, 2025, 1002 hours INDICATIONS: Size dates discrepancy, size of fetus inconsistent with dates in third trimester, diagnosis high risk Findings: Viable intrauterine single fetus with single amniotic sac presentation cephalic spine maternal right Cardiac motion 132 bpm Placenta posterior grade 1 Umbilical cord insertion seen. Amniotic fluid index 12.6 cm spine visualized Cervix 4.1 cm close Ovaries obscured by bowel gas. Composite estimated gestational age based on BPD, head circumference, abdominal circumference, femur length is 37 weeks 4 days Estimated weight 3065 g. Survey of intracranial anatomy, spinal anatomy, abdominal anatomy, four-chamber heart performed with no abnormalities identified. Impression: Viable intrauterine gestation in cephalic presentation Estimated gestational age 37 weeks 4 days Estimated weight 3065 g.
== END | disposition home or self-care (01) ==
PROVIDERS: PCP Family Medicine; Referring Provider Advanced Practice Midwife; Visit Provider Advanced Practice Midwife
DX: O26.843 Uterine size-date discrepancy, third trimester (principal); Z3A.37 37 weeks gestation of pregnancy
CPT/HCPCS: 76805

== ENCOUNTER 2025-04-14 09:18 | Outpatient (AMB) | payer MEDICAID, SELFPAY ==
[2025-04-14 09:30] VITALS: BP 114/78; PULSE 75; RESP 14; TEMP 36.7; O2SAT 97; BMI 32.1
--- NOTE | 2025-04-14 09:30 | OBCLNT_ITS ---
Vital Signs 04/14/25 09:30 Height 1.75 m Height Method Stated Weight 98.6 kg Weight Measurement Method Standing Scale BMI 32.1 BP 114/78 Blood Pressure Source Automatic Cuff Blood Pressure Location Left Upper Arm Position Sitting Respiration 14 Pulse 75 Pulse Source Monitor Temp 98.1 F Temp Source Oral Pulse Oximetry (%) 97 Oxygen Delivery Method Room Air Allergies/Home Meds Allergies & Medications Allergies No Known Allergies Allergy (Verified 04/14/25 09:31) Medication Reconciliation vitamins with calcium no.72-iron 29 mg-folic acid 1 mg tablet ( Plus) 1 tab PO QDAY 90 days #90 tabs 09/22/24 [Rx Confirmed 04/14/25] Intake Visit Data Collection New Patient or Established: Established Patient (seen at [facility] within 3 years) Reason for Visit:: CARE Seen by Clinical Staff ONLY (RN/MA): No Director Of Personnel Required: No Do You Feel Safe at Home: Yes Authorities Contacted: N/A PCP or OBGYN visit in last 3 months: Yes Hx Now: Yes Pain Present Currently: No Pain Scale Used: Mcneal-Zeng/Numerical Pain scale:: 0 Smoking Status Smoking Status: Never smoker Immunizations Flu Vaccine in the Last 12 Months: Yes Flu Vaccine Exclusion Criteria: Already Received Questionnaires Covid-19 Vaccine Questionnaire Has patient been vacinated for Covid-19 Have you been vacinated for Covid-19: Yes PHQ-9 PHQ-2 Over the last 2 weeks, how often have you been bothered by any of the following problems? 1. Little interest or pleasure in doing things: not at all 2. Feeling down, depressed, or hopeless: not at all Total score: 0 PHQ-9 3. Trouble falling or staying asleep, or sleeping too much: Not at all 4. Feeling tired or having little energy: Not at all 5. Poor appetite or overeating: Not at all 6. Feeling bad about yourself - or that you are a failure or have let yourself or your family down: Not at all 7. Trouble concentrating on things, such as reading the newspaper or watching television: Not at all 8. Moving or speaking so slowly that other people could have noticed? - Or the opposite - being so fidgety or restless that you have been moving around a lot more than usual: not at all 9. Thoughts that you would be better off or of hurting yourself in some way: Not at all Total score: 0 Source: Developed by Drs. Aydin Kat, Shadia Narvaez, Surendra Acosta and colleagues, with an educational brandee from [employer]. Depression screen completed yes Social History Living Situation History Lives With: Family Housing: House Tobacco History Smoking Status: Never smoker Second Hand Smoke Exposure: No Alcohol History Alcohol Intake: Never Domestic Abuse History Do You Feel Safe at Home: Yes Care OB Visit Log OB Flowsheet Initial Weight: Not Recorded Date -?-?-?-?-?-?-?-?-?-?-?-?- EGA Weight BP Alb Glu CTX Pres Fundal ht FHR Mov Dilation Station Effacement Hx Notes Visit Note 09/22/24 -?-?-?-?-?-?-?-?-?-?-?-?- 9w 3d 78.982 kg 110/71 Bedside sono CRL 9w3d FHR 167 10/13/24 -?-?-?-?-?-?-?-?-?-?-?-?- 12w 3d 79.095 kg 121/76 No CTX/LOF/VB. Reports good FM. No PICHARDO/VS, Epig/RUQ pain. Reports resolved nausea, mild persistent cough, no urinary symptoms. 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 Ultrasound: FHR 161 bpm. Placenta and fe lesa anatomy (head, body, legs) visualized. Labs: Asymptomatic bacteriuria (E. coli) . Genetic screen negative for aneuploidies. Female fetus. Assessment & Plan: 12w3d IUP with normal ultrasound and lab s. Mild cough, asymptomatic UTI. 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 low pressure at time. no early preg complaints today AFP today, sched MFM for anatomy scan, sab precaution, increase fluid, review ER precaution, RTC 4 week 12/22/24 -?-?-?-?-?-?-?-?-?-?-?-?- 22w 3d 89.018 kg 109/67 absent unknown 17 155 active light fm, no sab complaints, takes PNV, MFM r/s for 01/05 discuss AFP-, discuss PTL precaution, hydrate, continue PNV. RTC 4 week 01/20/25 -?-?-?-?-?-?-?-?-?-?-?-?- 26w 4d 92.646 kg 110/70 absent unknown 25 154 active Reports good movement. Denies SAB precautions. Denies leaking, denies bleeding, denies contractions. Discussed third trimester labs. Reviewed labor precautions. Increase fluid. Discussed weight gain and activity. Patient will return in 4 weeks OB check 02/23/25 -?-?-?-?-?-?-?-?-?-?-?-?- 31w 3d 96.275 kg 117/71 absent unknown 30 145 active Reports good movement. Denies contractions. No leaking. No bleeding. Doing well. Fetus is active TDAP, schedule O B sono for growth, PTL precaution , increase fluid. RTC 2 week 03/09/25 -?--?-?-?-?-?-?-?-?-?-?-?- 33w 3d 96.729 kg 115/70 absent unknown 32 145 active complaints of back ache and ligament pain. last day to work will be 03/15/25. Denies leaking, bleeding, cramps Disability star ting at 34 weeks 2 days. Last date of work will be March 15, 2025. Discussed labor precautions. Patient's follow- up growth scan is pending. Return in 2 weeks for GBS. Discussed ER precautions and danger signs symptoms. Kick count twice a day 03/24/25 -?-?-?-?-?-?-?-?-?-?-?-?- 35w 4d 97.069 kg 112/73 absent cephalic 34 142 active Complains of labial veins that she can feel when she showers. Denies leaking, bleeding, contractions. Reports good movement GBS today. Discussed comfort measures for labial vessels and danger signs symptoms. Discussed ER precautions as well kick count twice a day. Discussed labor precautions return in a week OB check 03/31/25 -?-?-?-?-?-?-?-?-?-?-?-?- 36w 4d 96.332 kg 113/75 occasional cephalic 35 143 active fetus active, denies leaking, bleeding occ uc and pressure discuss GBS-, growth sono at [facility] [place] 04/02, discuss labor precaution, fkc bid. rtc week obc 04/14/25 -?-?-?-?-?-?-?-?-?-?-?-?- 38w 4d 98.6 kg 114/78 occasional cephalic 37 1 45 active Reports good movement. Denies bleeding or leaking. Occasional contraction no pressure Discussed ultrasound. Discussed labor precautions. Kick count twice a day. Continue prenatals. Increase fluids. Return in a week OB check TATYANA Calculator Estimated Delivery Date Method Current WG Current Estimate 04/24/25 Manual 38w 4d final tatyana Other Estimates 04/24/25 LMP (Certain) 38w 4d 04/24/25 Ultrasound #1 38w 4d 04/24/25 Ultrasound #2 38w 4d Notes Visit Date: 03/31/25 Last Updated by: Kita Lynch CNM 03/31: GBS- Visit Date: 01/20/25 Last Updated by: Kita Lynch CNM B+,abs-,rpr;;nr, rub imm, hbsag-,hiv-,HC-, GC-/CT-, UA-, 1 hr gtt-. 24 yo . LMP 07/18/24. EDC 04/24/25 Visit Date: 12/22/24 Last Updated by: Kita Lynch CNM 12/22: AFP-, NIPT- Visit Date: 11/17/24 Last Updated by: Kita Lynch CNM 24 yo . lmp 07/18/24. EDC 04/24/25. hgabs-,HIV-,HC-, GC/CT-, B+,ABS-, nipt and carrier screen-, Office Procedures OBC Clinic LOC & Office Proc's Nursing/Assessment Patient Status: Established Patient OB Clinic Nursing Assessment: Medication Reconciliation, Update PMH in EMR and Vital Signs OB Clinic Coordination of Care: Complex Care and Chronic Disease 1-5, Consent,records obtained, informed consent, Education Simp Pt/Fam, 1 Ins Authorization, Lab and Imaging orders, Results/Orders obtained and Staff clarify orders Special Needs: Heart tones Established Patient Charge Established Patient Point Assignment: 150 Established Patient Point Charge: EP Level 4 (120-155) Assessment & Plan Diagnosis / Problem List (1) Size of fetus inconsistent with dates in third trimester: Status: Acute Plan Discussed kick count twice a day. I discussed labor precautions and parameters. Discussed ER precautions. Continue prenatals. Increase fluids. Discussed danger signs symptoms. Return in a week Additional Plan Follow Up: 1 Week (obc)
== END 2025-04-14 10:02 | disposition home or self-care (01) ==
LOC: HODSOBC 09:18
PROVIDERS: Supervising Provider Advanced Practice Midwife; Visit Provider Advanced Practice Midwife
DX: O09.893 Supervision of other high risk pregnancies, third trimester (principal); O26.843 Uterine size-date discrepancy, third trimester; Z3A.38 38 weeks gestation of pregnancy
CPT/HCPCS: 99214; G0463

== ENCOUNTER 2025-04-22 09:18 | Outpatient (AMB) | payer MEDICAID, SELFPAY ==
[2025-04-22 09:31] VITALS: BP 110/73; PULSE 81; RESP 18; TEMP 36.6; O2SAT 98; BMI 31.8
--- NOTE | 2025-04-22 09:31 | AMB.OBVISIT ---
Vital Signs 04/22/25 09:31 Height 1.75 m Height Method Stated Weight 97.749 kg Weight Measurement Method Standing Scale BMI 31.8 BP 110/73 Blood Pressure Source Automatic Cuff Blood Pressure Location Right Upper Arm Position Sitting Respiration 18 Pulse 81 Pulse Source Monitor Temp 97.8 F Temp Source Temporal Artery Scan Pulse Oximetry (%) 98 Oxygen Delivery Method Room Air Allergies/Home Meds Allergies & Medications Allergies No Known Allergies Allergy (Verified 04/22/25 09:33) Medication Reconciliation vitamins with calcium no.72-iron 29 mg-folic acid 1 mg tablet ( Plus) 1 tab PO QDAY 90 days #90 tabs 09/22/24 [Rx Confirmed 04/22/25] Intake Visit Data Collection New Patient or Established: Established Patient (seen at [facility] within 3 years) Reason for Visit:: OBC Seen by Clinical Staff ONLY (RN/MA): No Deployment Manager Required: No Do You Feel Safe at Home: Yes Authorities Contacted: N/A PCP or OBGYN visit in last 3 months: Yes Date of Last PCP or OBGYN visit: 04/14/25 Hx Now: Yes Are you currently on any form of Control: No Pain Present Currently: No Pain Scale Used: Mcneal-Zeng/Numerical Pain scale:: 0 Smoking Status Smoking Status: Never smoker Immunizations Flu Vaccine in the Last 12 Months: No Flu Vaccine Exclusion Criteria: No Exclusion Criteria Questionnaires Covid-19 Vaccine Questionnaire Has patient been vacinated for Covid-19 Have you been vacinated for Covid-19: No PHQ-9 PHQ-2 Over the last 2 weeks, how often have you been bothered by any of the following problems? 1. Little interest or pleasure in doing things: not at all 2. Feeling down, depressed, or hopeless: not at all Total score: 0 PHQ-9 3. Trouble falling or staying asleep, or sleeping too much: Not at all 4. Feeling tired or having little energy: Not at all 5. Poor appetite or overeating: Not at all 6. Feeling bad about yourself - or that you are a failure or have let yourself or your family down: Not at all 7. Trouble concentrating on things, such as reading the newspaper or watching television: Not at all 8. Moving or speaking so slowly that other people could have noticed? - Or the opposite - being so fidgety or restless that you have been moving around a lot more than usual: not at all 9. Thoughts that you would be better off or of hurting yourself in some way: Not at all Total score: 0 If you checked off any problems, how difficult have these problems made it for you to do your work, take care of things at home, or get along with other people?: not difficult at all Source: Developed by Drs. Aydin Kat, Shadia Narvaez, Surendra Acosta and colleagues, with an educational brandee from [employer]. Depression screen completed yes Social History Living Situation History Marital Status: Lives With: Family Housing: House Tobacco History Smoking Status: Never smoker Second Hand Smoke Exposure: No Alcohol History Alcohol Intake: Never Domestic Abuse History Do You Feel Safe at Home: Yes Care OB Visit Log OB Flowsheet Initial Weight: Not Recorded Date <del>?</del> EGA Weight BP Alb Glu CTX Pres Fundal ht FHR Mov Dilation Station Effacement Hx Notes Visit Note 09/22/24 <del>?</del> 9w 3d 78.982 kg 110/71 Bedside sono CRL 9w3d FHR 167 10/13/24 <del>?</del> 12w 3d 79.095 kg 121/76 No CTX/LOF/VB. Reports good FM. No PICHARDO/VS, Epig/RUQ pain. Reports resolved nausea, mild persistent cough, no urinary symptoms. 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 Ultrasound: FHR 161 bpm. Placenta and anatomy (head, body, legs) visualized. Labs: Asymptomatic bacteriuria (E. coli). Genetic screen negative for aneuploidies. Female fetus. Assessment & Plan: 12w3d IUP with normal ultrasound and labs. Mild cough, asymptomatic UTI. 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 low pressure at time. no early preg complaints today AFP today, sched MFM for anatomy scan, sab precaution, increase fluid, review ER precaution, RTC 4 week 12/22/24 <del>?</del> 22w 3d 89.018 kg 109/67 absent unknown 17 155 active light fm, no sab complaints, takes PNV, MFM r/s for 01/05 discuss AFP-, discuss PTL precaution, hydrate, continue PNV. RTC 4 week 01/20/25 <del>?</del> 26w 4d 92.646 kg 110/70 absent unknown 25 154 active Reports good movement. Denies SAB precautions. Denies leaking, denies bleeding, denies contractions. Discussed third trimester labs. Reviewed labor precautions. Increase fluid. Discussed weight gain and activity. Patient will return in 4 weeks OB check 02/23/25 <del>?</del> 31w 3d 96.275 kg 117/71 absent unknown 30 145 active Reports good movement. Denies contractions. No leaking. No bleeding. Doing well. Fetus is active TDAP, schedule OB sono for growth, PTL precaution , increase fluid. RTC 2 week 03/09/25 <del>?</del> 33w 3d 96.729 kg 115/70 absent unknown 32 145 active complaints of back ache and ligament pain. last day to work will be 03/15/25. Denies leaking, bleeding, cramps Disability starting at 34 weeks 2 days. Last date of work will be March 15, 2025. Discussed labor precautions. Patient's follow-up growth scan is pending. Return in 2 weeks for GBS. Discussed ER precautions and danger signs symptoms. Kick count twice a day 03/24/25 <del>?</del> 35w 4d 97.069 kg 112/73 absent cephalic 34 142 active Complains of labial veins that she can feel when she showers. Denies leaking, bleeding, contractions. Reports good movement GBS today. Discussed comfort measures for labial vessels and danger signs symptoms. Discussed ER precautions as well kick count twice a day. Discussed labor precautions return in a week OB check 03/31/25 <del>?</del> 36w 4d 96.332 kg 113/75 occasional cephalic 35 143 active fetus active, denies leaking, bleeding occ uc and pressure discuss GBS-, growth sono at [facility] [place] 04[place]02, discuss labor precaution, fkc bid. rtc week obc 04/14/25 <del>?</del> 38w 4d 98.6 kg 114/78 occasional cephalic 37 145 active Reports good movement. Denies bleeding or leaking. Occasional contraction no pressure Discussed ultrasound. Discussed labor precautions. Kick count twice a day. Continue prenatals. Increase fluids. Return in a week OB check 04/22/25 <del>?</del> 39w 5d 97.749 kg 110/73 occasional cephalic 38 145 active Reports good movement. Movement was palpated during auscultation. Denies leaking, bleeding. Occasional contractions IOL 04/27/25 IOL 04/27/25. Discussed kick count twice a day. Discussed labor precautions. Discussed ER precautions and parameters. Return in a week OB check if patient does not get in on the 10th TATYANA Calculator Estimated Delivery Date Method Current WG Current Estimate 04/24/25 Manual 39w 5d final tatyana Other Estimates 04/24/25 LMP (Certain) 39w 5d 04/24/25 Ultrasound #1 39w 5d 04/24/25 Ultrasound #2 39w 5d Notes Visit Date: 03/31/25 Last Updated by: Kita Lynch CNM 03/31: GBS- Visit Date: 01/20/25 Last Updated by: Kita Lynch CNM B+,abs-,rpr;;nr, rub imm, hbsag-,hiv-,HC-, GC-/CT-, UA-, 1 hr gtt-. 24 yo . LMP 07/18/24. EDC 04/24/25 Visit Date: 12/22/24 Last Updated by: Kita Lynch CNM 12/22: AFP-, NIPT- Visit Date: 11/17/24 Last Updated by: Kita Lynch CNM 24 yo . lmp 07/18/24. EDC 04/24/25. hgabs-,HIV-,HC-, GC/CT-, B+,ABS-, nipt and carrier screen-, Office Procedures OBC Clinic LOC & Office Proc's Nursing/Assessment Patient Status: Established Patient OB Clinic Nursing Assessment: Medication Reconciliation, Update PMH in EMR and Vital Signs OB Clinic Coordination of Care: Complex Care and Chronic Disease 1-5, Education Complex Pt/Fam, Consent,records obtained, informed consent, Results/Orders obtained and Staff clarify orders Special Needs: Heart tones Established Patient Charge Established Patient Point Assignment: 125 Established Patient Point Charge: EP Level 4 (120-155) Assessment & Plan Diagnosis / Problem List (1) Size of fetus inconsistent with dates in third trimester: Status: Acute Plan Schedule patient for induction April 27. Discussed labor precautions. Kick count twice a day. Discussed ER precautions parameters. Return in a week if patient does not get admitted for induction on the April 27 Additional Plan Follow Up: 1 Week (obc)
== END 2025-04-22 10:19 | disposition home or self-care (01) ==
LOC: HODSOBC 09:18
PROVIDERS: Supervising Provider Advanced Practice Midwife; Visit Provider Advanced Practice Midwife
DX: O09.893 Supervision of other high risk pregnancies, third trimester (principal); O26.843 Uterine size-date discrepancy, third trimester; Z3A.39 39 weeks gestation of pregnancy
CPT/HCPCS: 99214; G0463

== ENCOUNTER 2025-04-27 08:23 | Inpatient (IN) | payer MEDICAID, SELFPAY ==
[2025-04-27] VITALS (72 sets, daily range): BP systolic 00–127; BP diastolic 00–71; PULSE 65–99; RESP 16–18; TEMP 36.6–36.9; O2SAT 95–99; BMI 32.4
--- NOTE | 2025-04-27 08:39 | PC.NURSE ---
Testing BP monitor in RM 457, not previously working, swapped with monitor in rm 459 notified biomed
[2025-04-27 09:24] LABS: Basophils # (Auto) 0.0 Thou/mm3 (0.0-0.2); Basophils % (Auto) 1 % (0-2.5); Eosinophils # (Auto) 0.1 Thou/mm3 (0.0-0.5); Eosinophils % (Auto) 1 % (0-10); Hematocrit 37.0 % (36.0-46.0); Hemoglobin 12.7 g/dL (12.0-16.0); Immature Granulocytes Auto 0.03 Thou/mm3 (0.00-0.00); Lymphocytes # (Auto) 1.7 Thou/mm3 (1.0-4.8); Lymphocytes % (Auto) 27 % (10-50); Mean Corpuscular HGB Conc 34.3 g/dl (31.0-37.0); Mean Corpuscular Hemoglobin 30.0 pg (25.0-35.0); Mean Corpuscular Volume 87 fL (80-100); Monocytes # (Auto) 0.3 Thou/mm3 (0.0-0.8); Monocytes % (Auto) 5 % (0-12); Neutrophils # (Auto) 4.3 Thou/mm3 (1.8-7.7); Neutrophils % (Auto) 66 % (37-80); Nucleated Red Blood Cell # 0.00 Thou/mm3 (0.00-0.00); Nucleated Red Blood Cell % 0 /100 WBC (0); Platelet Count 168 Thou/mm3 (140-440); RDW Standard Deviation 42.2 fL (36.4-46.3); Red Blood Count 4.24 Miln/mm3 (4.00-5.20); White Blood Count 6.5 Thou/mm3 (3.6-11.0)
--- NOTE | 2025-04-27 09:51 | XR_ITS ---
EXAMINATION: age TECHNIQUE: Limited transabdominal sonographic images pelvis Date and time: April 27, 2025, 1025 hours INDICATIONS: Labor evaluation, unknown presentation unknown weight. FINDINGS: Viable intrauterine gestation cephalic presentation Estimated weight 3502.3 g IMPRESSION: Viable intrauterine gestation cephalic presentation Estimated weight 3502 g
[2025-04-27 10:06] LABS: Syphilis Nonreactive (Nonreactive)
--- NOTE | 2025-04-27 17:02 | PD.LDHP ---
Documentation for date of: 04/27/25 OB Labor/Induct. HPI History of Present Illness Chief complaint: induction : 2 Para: 1 Term pregnancies: 1 pregnancies: 0 Living children: 1 History of Abortions: Spontaneous and Elective: 0 History of Vaginal deliveries: 1 History of sections: No History of : No Date of last menstrual period: 07/18/24 TATYANA: 04/24/25 Gestational Age (weeks): 40 Gestational Age (days): 3 Gestational age based on last menstrual period: 40 Indication for induction: post dates History of present illness: 24-year-old 2 para 1 admitted to labor and delivery for induction of labor because of postdates. Last period July 18, 2024. This gives due date April 24, 2025. Patient is 40 weeks and 3 today. She had an early ultrasound September 22. Patient was 9 weeks 3 and this confirmed dates. Denies social habits. Denies surgery. Denies chronic illness. Patient is B+, antibody screen negative, RPR nonreactive, rubella immune, hepatitis B negative, hep C negative, HIV negative, GC and Chlamydia were negative. GBS negative. Her 1 hour GTT was normal. And her NIPT and carrier screens all negative. Patient reports movement today denies leaking or bleeding History of Present Dating criteria: LMP confirmed by 1st trimester US Adequate Care: Yes Ultrasounds: normal 1st trimester US and normal mid trimester US Obstetrical complications: none Medical complications: none Labs Labs: Positive: Rubella Titre, Negative: RPR, Hepatitis B, HIV, Chlamydia, Gonorrhea and Group Beta Strep and Unknown: Herpes Type 1, Herpes Type 2 and Covid-19 Review of Systems Review of Systems Systems Reviewed: All systems reviewed, normal except as documented Past Medical History Surgical History SURGICAL: Negative Section Meds Home Medications and Allergies Allergies Allergy/AdvReac Type Severity Reaction Status Date / Time No Known Allergies Allergy Verified 04/27/25 08:41 OB Exam Physical Exam Vital signs: Temp Pulse Resp BP Pulse Ox O2 Del Method 98.4 F 81 18 116/67 98 Room Air 04/27/25 14:13 04/27/25 16:40 04/27/25 14:13 04/27/25 16:40 04/27/25 14:54 04/27/25 14:13 Narrative: Normal heart rate and rhythm. Lungs clear no wheezes. Gravid abdomen. Gynecoid pelvis. Estimated weight 3500 g. Vertex on ultrasound. PAMELA was normal on ultrasound. On exam patient was long, 2, -2. Posterior and vertex. heart category 1 with accelerations and moderate variability Detailed Labor and Delivery Exam Dilation (cm): 2 Effacement (%): thick Cervix position: posterior station: -3 Consistency: medium Presentation: Vertex Cervical ripeness score: 3 Membranes: intact Baseline heart rate: 120 monitor accelerations: 15x15 monitor decelerations: None skilled nursing variability: Moderate (11-25) Contraction frequency (min): occ Contraction duration (sec): 30 Tachysystole: No Contraction intensity: Mild OB Results Labs 04/27/25 08:55 Labs: Short CBC 04/27/25 Range/Units 08:55 WBC 6.5 (3.6-11.0) Thou/mm3 Hgb 12.7 (12.0-16.0) g/dL Hct 37.0 (36.0-46.0) % Plt Count 168 (140-440) Thou/mm3 OB Assessment & Plan Assessment and Plan (1) Normal labor and delivery: Status: Acute Additional Plan Induction method: per misoprostol protocol Plan: induction, anticipate NVD and consult MD philippe
[2025-04-28] VITALS (139 sets, daily range): BP systolic 94–151; BP diastolic 51–84; PULSE 52–94; RESP 16–18; TEMP 36.4–37.9; O2SAT 89–100
[2025-04-28] MEDS: RINGERS LACTATED 1000 ML 1,000 ML 100 ML IV (03:46)
[2025-04-28] MEDS: OXYTOCIN INJ 10 UNIT/ML VIAL IM (08:54)
[2025-04-28] MEDS: OXYTOCIN in NS 20 units 20 UNIT/1,000 ML BAG 125 UNIT IV (08:54)
[2025-04-28] MEDS: METHYLERGONOVINE INJ 0.2 MG/ML VIAL IM (09:00)
[2025-04-28] MEDS: BENZO/LANO/ALOE (Dermoplast) 60 GM CAN 1 SPRAY TOP (09:03)
[2025-04-28] MEDS: IBUPROFEN TAB 400 MG TABLET 800 MG PO (09:14)
--- NOTE | 2025-04-28 10:24 | PD.LDDELS ---
Data (Rao) Data Hx Section: No : 2 Term: 1 : 0 Livin Abortions: Spontaneous & Theraputic: 0 Delivery Data (Rao) Labor Data Initiation of labor: Induction Induction/Augmentation Agent: Cytotec-PO ROM date: 04/28/25 ROM time: 03:07 Amniotic membrane rupture type: Spontaneous Amniotic fluid description: Clear Delivery Data EDC: 04/24/25 EDC calculated by:: LMP/early US confirmation Date of arrival to unit: 04/27/25 Time of arrival to unit: 08:23 Onset of labor date: 04/28/25 Onset of labor time: 03:00 Complete dilation date: 04/28/25 Complete dilation time: 08:04 [place] delivery date: 04/28/25 delivery time: 08:48 Placenta delivery date: 04/28/25 Placenta delivery time: 08:54 Stage 1 total time: Labor - Stage 1 Duration 5 hours and 4 minutes Delivered by: Kita Lynch Delivery nurse: AYUSH Andrade nurse: FERDINAND Cone Winder at delivery: No Support person(s) at delivery: FOB Delivery Method Delivery method: Normal Vaginal Delivery Presentation: Vertex position: OA Anesthesia Type Anesthesia Type: Epidural Delivery Room Medications Delivery room medications: Methergine 0.2 mg IM, Pitocin 10 u IM, Pitocin 20 u IV, Cytotec [address] CT and other (txa) Placenta Placenta delivery description: Spontaneous (inspected,intact) Cord blood sent to lab: No cord blood collection: Cord Blood Type Episiotomy Episiotomy description: None Lacerations #1: Vaginal: 1st degree (bilateralPU) Perineal repair Sutures used for repair: 3.0 Vicryl EBL Estimated blood loss (ml): 400 Umbilical Cord cord description: 3 Vessels Additional Procedures posterior arm [place] Data (Rao) Data order: 1 's gender: Female Identification band number: [id number] weight (gms): 3590 g Weight (pounds): 7 lbs and 14.6 ozs [place] length: 53 cm 1 minute: 8 5 minutes: 9
[2025-04-28 18:02] LABS: Basophils # (Auto) 0.0 Thou/mm3 (0.0-0.2); Basophils % (Auto) 0 % (0-2.5); Eosinophils # (Auto) 0.0 Thou/mm3 (0.0-0.5); Eosinophils % (Auto) 0 % (0-10); Hematocrit 37.4 % (36.0-46.0); Hemoglobin 12.8 g/dL (12.0-16.0); Immature Granulocytes Auto 0.06 Thou/mm3 (0.00-0.00); Lymphocytes # (Auto) 1.7 Thou/mm3 (1.0-4.8); Lymphocytes % (Auto) 14 % (10-50); Mean Corpuscular HGB Conc 34.2 g/dl (31.0-37.0); Mean Corpuscular Hemoglobin 29.5 pg (25.0-35.0); Mean Corpuscular Volume 86 fL (80-100); Monocytes # (Auto) 0.7 Thou/mm3 (0.0-0.8); Monocytes % (Auto) 6 % (0-12); Neutrophils # (Auto) 9.4 Thou/mm3 (1.8-7.7); Neutrophils % (Auto) 79 % (37-80); Nucleated Red Blood Cell # 0.00 Thou/mm3 (0.00-0.00); Nucleated Red Blood Cell % 0 /100 WBC (0); Platelet Count 148 Thou/mm3 (140-440); RDW Standard Deviation 41.3 fL (36.4-46.3); Red Blood Count 4.34 Miln/mm3 (4.00-5.20); White Blood Count 11.9 Thou/mm3 (3.6-11.0)
[2025-04-28] MEDS: DOCUSATE SOD 100 MG CAPSULE PO (20:03)
[2025-04-28] MEDS: ACETAMINOPHEN 325 MG TABLET 650 MG PO (20:03)
[2025-04-29 03:35] VITALS: BP 110/71; PULSE 61; RESP 16; TEMP 36.6; O2SAT 98
[2025-04-29 06:12] LABS: Basophils # (Auto) 0.0 Thou/mm3 (0.0-0.2); Basophils % (Auto) 0 % (0-2.5); Eosinophils # (Auto) 0.1 Thou/mm3 (0.0-0.5); Eosinophils % (Auto) 1 % (0-10); Hematocrit 34.3 % (36.0-46.0); Hemoglobin 11.6 g/dL (12.0-16.0); Immature Granulocytes Auto 0.03 Thou/mm3 (0.00-0.00); Lymphocytes # (Auto) 2.1 Thou/mm3 (1.0-4.8); Lymphocytes % (Auto) 22 % (10-50); Mean Corpuscular HGB Conc 33.8 g/dl (31.0-37.0); Mean Corpuscular Hemoglobin 29.9 pg (25.0-35.0); Mean Corpuscular Volume 88 fL (80-100); Monocytes # (Auto) 0.6 Thou/mm3 (0.0-0.8); Monocytes % (Auto) 6 % (0-12); Neutrophils # (Auto) 7.0 Thou/mm3 (1.8-7.7); Neutrophils % (Auto) 71 % (37-80); Nucleated Red Blood Cell # 0.00 Thou/mm3 (0.00-0.00); Nucleated Red Blood Cell % 0 /100 WBC (0); Platelet Count 161 Thou/mm3 (140-440); RDW Standard Deviation 43.5 fL (36.4-46.3); Red Blood Count 3.88 Miln/mm3 (4.00-5.20); White Blood Count 9.8 Thou/mm3 (3.6-11.0)
[2025-04-29 07:46] VITALS: BP 102/65; PULSE 59; RESP 17; TEMP 36.8; O2SAT 98
[2025-04-29] MEDS: DOCUSATE SOD 100 MG CAPSULE PO (08:33)
--- NOTE | 2025-04-29 09:01 | PD.LDPPPRG ---
Subjective Subjective Interval history: No complaints of pain. No dizziness. Breast-feeding bonding no complaints of pain Exam Vital Signs Temp Pulse Resp BP Pulse Ox O2 Del Method 97.8 F 61 16 110/71 98 Room Air 04/29/25 03:35 04/29/25 03:35 04/29/25 03:35 04/29/25 03:35 04/29/25 03:35 04/29/25 03:35 Narrative Exam Lungs clear no wheezes. Normal heart rate and rhythm. Abdomen soft nontender. Perineum is clean no lesions. Small lochia. Uterus well involuted. Negative Homans' sign. 2+ DTR Objective Labs 04/29/25 04:30 Labs: Laboratory Results - last 24 hr 04/28/25 04/29/25 17:39 04:30 WBC 11.9 H D 9.8 RBC 4.34 3.88 L Hgb 12.8 11.6 L Hct 37.4 34.3 L MCV 86 88 MCH 29.5 29.9 MCHC 34.2 33.8 RDW Std Deviation 41.3 43.5 Plt Count 148 161 Neut % (Auto) 79 71 Lymph % (Auto) 14 22 [place] % (Auto) 6 6 Eos % (Auto) 0 1 Baso % (Auto) 0 0 Neut # (Auto) 9.4 H 7.0 Lymph # (Auto) 1.7 2.1 [place] # (Auto) 0.7 0.6 Eos # (Auto) 0.0 0.1 Baso # (Auto) 0.0 0.0 Immature Gran # (Auto) 0.06 H 0.03 H Absolute Nucleated RBC 0.00 0.00 Immature Gran % 1 H 0 Nucleated RBC % 0 0 Assessment & Plan Problem List (1) Normal labor and delivery: Status: Acute Assessment Comment Assessment comment: 24-hour Plan Comment Plan Comment: Discharge home with ibuprofen 800 p.o. Q6. Tylenol as needed. Continue vitamins and iron. Increase fluids. Discussed danger signs and symptoms, ER precautions. And signs symptoms of infection. Rest and return in 3 weeks for Time Spent With Patient Time: Total time spent is greater than 50% in coordination of care (as documented) at patient's floor/unit and/or counseling patient:
--- NOTE | 2025-04-29 09:03 | PD.LDDS ---
DS: Providers Provider Date of admission: 04/27/25 08:23 Primary care physician: Physician No Primary/Family Admitting Provider: Latosha Huerta MD Attending Provider on Admission: Kita Lynch CNM Consults: 04/28/25 11:09 Referral Routine Comment: Attending Provider on DC: Kita Lynch CNM Discharging Provider: Kita Lynch CNM DS: Diagnosis Problem List Completed Was Problem List Reviewed/Reconciled?: Yes Summary/Hosp Course Brief History: 24-year-old 2 para 1 admitted to labor and delivery for induction of labor because of postdates. Last period July 18, 2024. This gives due date April 24, 2025. Patient is 40 weeks and 3 today. She had an early ultrasound September 22. Patient was 9 weeks 3 and this confirmed dates. Denies social habits. Denies surgery. Denies chronic illness. Patient is B+, antibody screen negative, RPR nonreactive, rubella immune, hepatitis B negative, hep C negative, HIV negative, GC and Chlamydia were negative. GBS negative. Her 1 hour GTT was normal. And her NIPT and carrier screens all negative. Patient reports movement today denies leaking or bleeding Peripartum Data Delivery Method: Normal Vaginal Delivery Episiotomy Description: None Laceration Description: yes (vag and PU) complications: none Time Spent with Patient Time attestation: Total time spent providing and/or coordinating discharge services: Exam Vital Signs Temp Pulse Resp BP Pulse Ox O2 Del Method 97.8 F 61 16 110/71 98 Room Air 04/29/25 03:35 04/29/25 03:35 04/29/25 03:35 04/29/25 03:35 04/29/25 03:35 04/29/25 03:35 Discharge Plan Plan Patient Disposition: HOME (Self Care) Patient condition on transfer: Stable Prescriptions/Referrals Prescriptions/Med Rec: New ibuprofen 800 mg tablet 800 mg PO Q8H PRN (Reason: pain) Qty: 60 1RF No Action Plus 29 mg iron- 1 mg tablet 1 tab PO QDAY 90 Days Qty: 90 4RF Referrals: No Primary/Family,Physician [Primary Care Provider] Patient/Caregiver Discharge Instructions Print Language: Kiswahili Activity Restrictions/Additional Instructions: Discharge home with baby. I gave patient prescription for ibuprofen 800 p.o. Q6 as needed for pain. Discussed comfort measures and perineal care and sitz bath's for vaginal lacerations. Discussed ER precautions with parameters. And I discussed signs symptoms of infection. We discussed seeing danger signs symptoms. And return in 3 weeks visit Stand Alone Forms: Lindsay Award Info., Patient Portal Info Letter Discharge Order Discharge Orders: Discharge (Routine); Ordered 04/29/25 Ordered By: Kita Lynch Planned Discharge Date 04/29/25
[2025-04-29 11:00] VITALS: BP 107/61; PULSE 60; RESP 19; TEMP 36.7; O2SAT 99
== END 2025-04-29 12:00 | disposition home or self-care (01) | DRG 560 ==
LOC: S4SX 04-28 11:12 → S4NX 04-28 13:24
PROVIDERS: Admitting Provider Obstetrics & Gynecology; Visit Provider Advanced Practice Midwife
DX: O48.0 Post-term pregnancy (principal); O70.0 First degree perineal laceration during delivery; Z37.0 Single live birth; Z3A.40 40 weeks gestation of pregnancy
CPT/HCPCS: 36415; 59409; 76815; 85025; 86780; 86850; 86900; 86901; 94762; J2210; J2590; J2795; J3010; J7120; S0191; A9270

== ENCOUNTER 2025-06-01 10:16 | Outpatient (AMB) | payer MEDICAID, SELFPAY ==
--- NOTE | 2025-06-01 10:36 | AMBOBPPN_ITS ---
Vital Signs 06/01/25 10:37 Height 1.75 m Height Method Stated Weight 90.945 kg Weight Measurement Method Standing Scale BMI 29.7 BP 119/75 Blood Pressure Source Automatic Cuff Blood Pressure Location Right Upper Arm Position Sitting Respiration 18 Pulse 67 Pulse Source Monitor Temp 97.9 F Temp Source Temporal Artery Scan Pulse Oximetry (%) 97 Oxygen Delivery Method Room Air Allergies/Home Meds Allergies & Medications Allergies No Known Allergies Allergy (Verified 06/01/25 10:37) Medication Reconciliation vitamins with calcium no.72-iron 29 mg-folic acid 1 mg tablet ( Plus) 1 tab PO QDAY 90 days #90 tabs 09/22/24 [Rx Confirmed 06/01/25] ibuprofen 800 mg tablet 800 mg PO Q8H PRN pain #60 tabs 04/29/25 [Rx Confirmed 06/01/25] Intake Visit Data Collection New Patient or Established: Established Patient (seen at [facility] within 3 years) Reason for Visit:: Seen by Clinical Staff 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: No Do You Feel Safe at Home: Yes Authorities Contacted: N/A PCP or OBGYN visit in last 3 months: Yes Date of Last PCP or OBGYN visit: 04/14/25 Hx Now: No Are you currently on any form of Control: No Pain Present Currently: No Pain Scale Used: Mcneal-Zeng/Numerical Smoking Status Smoking Status: Never smoker Immunizations Flu Vaccine in the Last 12 Months: No Flu Vaccine Exclusion Criteria: No Exclusion Criteria 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 Medical History Past Medical History: No Hx Neurological Disorders, No Hx Hypothyroidism, No Hx Cardiac Disorders, No Hx Hypertension, No Hx Cancer, No Hx Blood Disorders, No Hx Anemia, No Hx Renal Disease, No Hx Deep Vein Thrombosis, No Hx Diabetes Mellitus Type 1, No Hx Diabetes Mellitus Type 2 and No Psychiatric Problems Questionnaires Covid-19 Vaccine Questionnaire Has patient been vacinated for Covid-19 Have you been vacinated for Covid-19: No Social History Living Situation History Marital Status: Lives With: Family Housing: House Tobacco History Smoking Status: Never smoker Second Hand Smoke Exposure: No Alcohol History Alcohol Intake: Never Domestic Abuse History Do You Feel Safe at Home: Yes EPDS - PP Depression Screening [place] Pospartum Depression Screen I have been able to laugh and see the funny side of things: (0) As much as I always could I have looked forward with enjoyment to things: (0) As much as I ever did I have blamed myself unnecessarily when things went wrong: (0) No, never I have been anxious or worried for no good reason: (0) No, not at all I have felt scared or panicky for no very good reason: (0) No, not at all Things have been getting on top of me: (0) No, I have been coping as well as ever I have been so unhappy that I have had difficulty sleeping: (0) No, not at all I have felt sad or miserable: (0) No, not at all I have been so unhappy that I have been crying: (0) No, never The thought of harming myself has occurred to me: (0) Never EPDS completed yes Care OB Visit Log OB Flowsheet Initial Weight: Not Recorded Date -?-?-?-?-?-?-?-?-?-?-?-?- EGA Weight BP Alb Glu CTX Pres Fundal ht FHR Mov Dilation Station Effacement Hx Notes Visit Note 09/22/24 -?-?-?-?-?-?-?-?-?-?-?-?- 9w 3d 78.982 kg 110/71 Bedside sono CRL 9w3d FHR 167 10/13/24 -?-?-?-?-?-?-?-?-?-?-?-?- 12w 3d 79.095 kg 121/76 No CTX/LOF/VB. Reports good FM. No PICHARDO/VS, Epig/RUQ pain. Reports resolved nausea, mild persistent cough, no urinary symptoms. 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 Ultrasound: FHR 161 bpm. Placenta and fe lesa anatomy (head, body, legs) visualized. Labs: Asymptomatic bacteriuria (E. coli) . Genetic screen negative for aneuploidies. Female fetus. Assessment & Plan: 12w3d IUP with normal ultrasound and lab s. Mild cough, asymptomatic UTI. 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 low pressure at time. no early preg complaints today AFP today, sched MFM for anatomy scan, sab precaution, increase fluid, review ER precaution, RTC 4 week 12/22/24 -?-?-?-?-?-?-?-?-?-?-?-?- 22w 3d 89.018 kg 109/67 absent unknown 17 155 active light fm, no sab complaints, takes PNV, MFM r/s for 01/05 discuss AFP-, discuss PTL precaution, hydrate, continue PNV. RTC 4 week 01/20/25 -?-?-?-?-?-?-?-?-?-?-?-?- 26w 4d 92.646 kg 110/70 absent unknown 25 154 active Reports good movement. Denies SAB precautions. Denies leaking, denies bleeding, denies contractions. Discussed third trimester labs. Reviewed labor pr ecautions. Increase fluid. Discussed weight gain and activity. Patient will return in 4 weeks OB check 02/23/25 -?-?-?-?-?-?-?-?-?-?-?-?- 31w 3d 96.275 kg 117/71 absent unknown 30 145 active Reports good movement. Denies contractions. No leaking. No bleeding. Doing well. Fetus is active TDAP, schedule O B sono for growth, PTL precaution , increase fluid. RTC 2 week 03/09/25 -?-?-?-?-?-?-?-?-?-?-?-?- 33w 3d 96.729 kg 115/70 absent unknown 32 145 active complaints of back ache and ligament pain. last day to work will be 03/15/25. Denies leaking, bleeding, cramps Disability star ting at 34 weeks 2 days. Last date of work will be March 15, 2025. Discussed labor precautions. Patient's follow- up growth scan is pending. Return in 2 weeks for GBS. Discussed ER precautions and danger signs symptoms. Kick count twice a day 03/24/25 -?-?-?-?-?-?-?-?-?-?-?-?- 35w 4d 97.069 kg 112/73 absent cephalic 34 142 active Complains of labial veins that she can feel when she showers. Denies leaking, bleeding, contractions. Reports good movement GBS today. Discussed comfort measures for labial vessels and danger signs symptoms. Discussed ER precautions as well kick count twice a day. Discussed labor precautions return in a week OB check 03/31/25 -?-?-?-?-?-?-?-?-?-?-?-?- 36w 4d 96.332 kg 113/75 occasional cephalic 35 143 active fetus active, denies leaking, bleeding occ uc and pressure discuss GBS-, growth sono at [facility] 04/02, discuss labor precaution, fkc bid. rtc week obc 04/14/25 -?-?-?-?-?-?-?-?-?-?-?-?- 38w 4d 98.6 kg 114/78 occasional cephalic 37 1 45 active Reports good movement. Denies bleeding or leaking. Occasional contraction no pressure Discussed ultrasound. Discussed labor precautions. Kick count twice a day. Continue prenatals. Increase fluids. Return in a week OB check 04/22/25 -?-?-?-?-?-?-?-?-?-?-?-?- 39w 5d 97.749 kg 110/73 occasional cephalic 38 145 active Reports good movement. Movement was palpated during auscultation. Denies leaking, bleeding. Occasional contractions IOL 04/27/25 IOL 04/27/25. Discussed kic k count twice a day. Discussed labor precautions. Discussed ER precautions and parameters. Return in a week OB check if patient does not get in on the 10th TATYANA Calculator Estimated Delivery Date Method Current WG Current Estimate 04/24/25 Manual 45w 3d final tatyana Other Estimates 04/24/25 LMP (Certain) 45w 3d 04/24/25 Ultrasound #1 45w 3d 04/24/25 Ultrasound #2 45w 3d Notes Visit Date: 03/31/25 Last Updated by: Kita Lynch CNM 03/31: GBS- Visit Date: 01/20/25 Last Updated by: Kita Lynch CNM B+,abs-,rpr;;nr, rub imm, hbsag-,hiv-,HC-, GC-/CT-, UA-, 1 hr gtt-. 24 yo . LMP 07/18/24. EDC 04/24/25 Visit Date: 12/22/24 Last Updated by: Kita Lynch CNM 12/22: AFP-, NIPT- Visit Date: 11/17/24 Last Updated by: Kita Lynch CNM 24 yo . lmp 07/18/24. EDC 04/24/25. hgabs-,HIV-,HC-, GC/CT-, B+,ABS-, nipt and carrier screen-, HPI Interval History: 25-year-old 2 para 2 for 6-week . Patient had a vaginal April 28. A baby girl weighing 7 pounds 14 ounces. Patient is bottlefeeding. She is not sexually active yet she is happy, no depression. Reports good family support. 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 Lungs clear no wheezes. Abdomen is soft nontender. Uterus well involuted. Perineum is intact no lacerations. No swelling. Small lochia. Negative Homans' sign. 2+ DTRs. No edema no swelling. Breasts are soft Office Procedures OBC Clinic LOC & Office Proc's Nursing/Assessment Patient Status: Established Patient OB Clinic Nursing Assessment: Medication Reconciliation, Update PMH in EMR and Vital Signs OB Clinic Coordination of Care: Complex Care and Chronic Disease 1-5, Education Complex Pt/Fam, Consent,records obtained, informed consent, Lab and Imaging orders, Results/Orders obtained and Staff clarify orders Established Patient Charge Established Patient Point Assignment: 110 Established Patient Point Charge: EP Level 3 (80-115) Antepartum Initial or Follow-up Antepartum Initial Visit: Yes Assessment & Plan Diagnosis / Problem List (1) 6 weeks follow-up: Status: Acute Plan no sex. Reviewed Nexplanon side effects, effectiveness and compliance. Discussed insert with patient. Continue prenatals. Okay to diet and exercise. Patient will return in for next available for Nexplanon insert Care Reviewed delivery summary and any complications: Yes Uterus involuted to: 3 below umb Perineal / incision healing noted: Yes Screened for depression: Yes Depression counseling provided: No Discussed family planning & contraception: Yes Contraception planned: nexplanon Counseling on safe resumption of sexual activity: Yes Counseling on gradual excercise: Yes Discussed and concerns (describe), provided support: No Referred to marketing specialist: No Counseled on good nutrition, hydration, and self care: Yes Chronic & current problems reconciled on problem list: Yes care discussed; questions answered: feeding Follow up: routine/prn Additional counseling & anticipatory guidance provided: Continue sitz bath's and comfort measures for light labial lacerations. Can reviewed Nexplanon insert and procedure and effectiveness. No sex and return in 4 weeks for Nexplanon insert
[2025-06-01 10:37] VITALS: BP 119/75; PULSE 67; RESP 18; TEMP 36.6; O2SAT 97; BMI 29.7
== END 2025-06-01 11:27 | disposition home or self-care (01) ==
LOC: HODSOBC 10:16
PROVIDERS: Supervising Provider Advanced Practice Midwife; Visit Provider Advanced Practice Midwife
DX: Z39.2 Encounter for routine postpartum follow-up (principal)
CPT/HCPCS: 59425; 99213; G0463

== ENCOUNTER 2025-06-12 15:27 | Outpatient (AMB) | payer MEDICAID, SELFPAY ==
--- NOTE | 2025-06-12 15:42 | AMB.GYNCLNOT ---
Vital Signs 06/12/25 15:43 Height 1.75 m Height Method Stated Weight 91.739 kg Weight Measurement Method Standing Scale BMI 29.9 BP 118/78 Blood Pressure Source Automatic Cuff Blood Pressure Location Right Upper Arm Position Sitting Respiration 18 Pulse 86 Pulse Source Monitor Temp 97.6 F Temp Source Temporal Artery Scan Pulse Oximetry (%) 98 Oxygen Delivery Method Room Air Allergies/Home Meds Allergies & Medications Allergies No Known Allergies Allergy (Verified 06/12/25 15:44) Medication Reconciliation vitamins with calcium no.72-iron 29 mg-folic acid 1 mg tablet ( Plus) 1 tab PO QDAY 90 days #90 tabs 09/22/24 [Rx Confirmed 06/12/25] ibuprofen 800 mg tablet 800 mg PO Q8H PRN pain #60 tabs 04/29/25 [Rx Confirmed 06/12/25] ibuprofen 800 mg tablet 800 mg PO TID decrease menses 5 days #15 tabs 06/12/25 [Rx] Intake Visit Data Collection New Patient or Established: Established Patient (seen at [facility] within 3 years) 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: No Do You Feel Safe at Home: Yes Authorities Contacted: N/A PCP or OBGYN visit in last 3 months: Yes Date of Last PCP or OBGYN visit: 06/01/25 Hx Now: No Are you currently on any form of Control: No Pain Present Currently: No Pain Scale Used: Mcneal-Zeng/Numerical Pain scale:: 0 Smoking Status Smoking Status: Never smoker Immunizations Flu Vaccine in the Last 12 Months: No Flu Vaccine Exclusion Criteria: No Exclusion Criteria 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 Menstrual regularity: regular Flow: heavy Monthly: Yes If not currently sexually active, have you ever been sexually active: Yes [place] 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 1. Little interest or pleasure in doing things: not at all 2. Feeling down, depressed, or hopeless: not at all Total score: 0 PHQ-9 3. Trouble falling or staying asleep, or sleeping too much: Not at all 4. Feeling tired or having little energy: Not at all 5. Poor appetite or overeating: Not at all 6. Feeling bad about yourself - or that you are a failure or have let yourself or your family down: Not at all 7. Trouble concentrating on things, such as reading the newspaper or watching television: Not at all 8. Moving or speaking so slowly that other people could have noticed? - Or the opposite - being so fidgety or restless that you have been moving around a lot more than usual: not at all 9. Thoughts that you would be better off or of hurting yourself in some way: Not at all Total score: 0 If you checked off any problems, how difficult have these problems made it for you to do your work, take care of things at home, or get along with other people?: not difficult at all Source: Developed by Drs. Aydin Kat, Shadia Narvaez, Surendra Acosta and colleagues, with an educational brandee from [employer]. Depression screen completed yes Social History Living Situation History Marital Status: Lives With: Family Housing: House Tobacco History Smoking Status: Never smoker Second Hand Smoke Exposure: No Alcohol History Alcohol Intake: Never Domestic Abuse History Do You Feel Safe at Home: Yes History of Present Illness HPI Narrative 25-year-old 2 para 2 for Nexplanon insert. LMP 01/28/2024. Patient reports that with onset of menses the first 2 days were normal. But she has been been bleeding heavy changing her pad almost hourly today. And she denies any cramping. She is had a few small clots. No dizziness no headache no blurred vision. Patient reports that when she started her period after her last child she did the same thing. She had a first-degree vaginal tear. No pain no discomfort from that of vaginal April 28, 2025 so she is 7 weeks . Patient had an epidural and since then her back has been hurting and with increasing discomfort and pain. She works standing all day and at home doing daily chores it is very difficult for her to stand more than an hour without increasing her back pain. She is not sexually active. She used Nexplanon in the past and liked it and she would like to have 1 inserted. Patient would like to wait until her heavy bleeding stops before she gets her Nexplanon in Review of Systems Review of Systems Systems Reviewed: All systems reviewed, normal except as documented Exam General Limitations: no limitations General Appearance: alert, in no apparent distress, comfortable, cooperative, healthy appearing, well developed and well groomed Head Head exam: atraumatic, normocephalic and normal inspection ENT ENT exam: Present normal exam, normal oropharynx and mucous membranes moist Resp Respiratory exam: Present normal lung sounds bilaterally Card Cardiovascular exam: Present regular rate, normal rhythm and normal heart sounds Abdominal Abdominal exam: Present soft and normal bowel sounds Extremities Extremities exam: Present normal inspection and full ROM Office Procedures OBC Clinic LOC & Office Proc's Nursing/Assessment Patient Status: Established Patient OB Clinic Nursing Assessment: Medication Reconciliation, Update PMH in EMR and Vital Signs OB Clinic Coordination of Care: Complex Care and Chronic Disease 1-5, Education Complex Pt/Fam, Consent,records obtained, informed consent, Lab and Imaging orders, Ref for ancillary service, Results/Orders obtained and Staff clarify orders Miscellaneous Interventions: Blood/Urine Collection Established Patient Charge Established Patient Point Assignment: 170 Established Patient Point Charge: EP Level 5 (160-above) In Clinic Bedside tests/procedures Bedside HCG: Yes In Clinic Procedures Minor Surgical Procedure: Yes Results Urine HCG Urine HCG Negative Last Edit by Jaye Goodman MA on 06/12/25 15:51 Assessment & Plan Diagnosis / Problem List (1) Encounter for initial prescription of Nexplanon: Status: Acute Plan Nexplanon was not placed today. High-dose ibuprofen 800 mg p.o. 3 times daily x 5 days with food to help decrease menstrual flow. Patient will return in a week for Nexplanon insert. I gave ER precautions if bleeding should worsen or if starts passing clots. Ultrasound left breast to evaluate small cyst that she has at 12:00 at [facility]. Follow-up after the ultrasound for results. Avoid caffeine products. And no sex Additional Plan Follow Up: 1 Week (nexplanon insert)
[2025-06-12 15:43] VITALS: BP 118/78; PULSE 86; RESP 18; TEMP 36.4; O2SAT 98; BMI 29.9
== END 2025-06-12 16:23 | disposition home or self-care (01) ==
LOC: HODSOBC 15:27
PROVIDERS: Supervising Provider Advanced Practice Midwife; Visit Provider Advanced Practice Midwife
DX: Z30.017 Encounter for initial prescription of implantable subdermal contraceptive (principal); Z32.02 Encounter for pregnancy test, result negative; N60.02 Solitary cyst of left breast; Z53.29 Procedure and treatment not carried out because of patient's decision for other reasons
CPT/HCPCS: 81025; 99215; J3490; J7301; G0463